=== PATIENT | female | born 1930 | race Caucasian/White ===

== ENCOUNTER 2019-07-24 11:14 | Inpatient (IN) | payer MEDICARE ==
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
[2019-07-24 12:27] LABS: Basophils % (A) 1 %; Eosinophils # (A) 0.1 k/uL (0-0.7); Eosinophils % (A) 1 %; HCT 36.3 % (34.0-46.0); HGB 11.4 gm/dL (11.4-16.0); Lymphocytes # (A) 0.9 k/uL (1.0-4.8); Lymphocytes % (A) 14 %; MCHC 31.3 g/dL (31.0-37.0); MCV 89.2 fL (80.0-100.0); Mean Platelet Volume 7.3; Monocytes # (A) 0.5 k/uL (0-1.0); Monocytes % (A) 8 %; Neutrophils # (A) 4.8 k/uL (1.3-7.7); Neutrophils % (A) 73 %; Platelet Count 370 k/uL (150-450); RBC 4.07 m/uL (3.80-5.40); RDW 13.3 % (11.5-15.5); WBC 6.6 k/uL (3.8-10.6)
[2019-07-24 12:38] LABS: Albumin 3.3 g/dL (3.5-5.0); Calcium 8.8 mg/dL (8.4-10.2); Potassium 3.9 mmol/L (3.5-5.1); Total Bilirubin 0.6 mg/dL (0.2-1.3); Total Protein 6.6 g/dL (6.3-8.2)
--- NOTE | 2019-07-24 12:40 | XR ---
EXAMINATION TYPE: XR chest 2V DATE OF EXAM: 07/24/2019 COMPARISON: None INDICATION: Difficulty breathing short of breath x3 days TECHNIQUE: Frontal and lateral views of the chest are obtained. FINDINGS: The heart size is normal. The pulmonary vasculature is normal. There is a small left pleural effusion. Minimal right pleural effusion may be present. Some platelike atelectasis is in the right lower lung field.. IMPRESSION: 1. Small bilateral pleural effusions. 2. Platelike atelectasis right lung base
--- NOTE | 2019-07-24 12:41 | XR ---
EXAMINATION TYPE: XR KUB DATE OF EXAM: 07/24/2019 COMPARISON: None HISTORY: Difficulty breathing upper abdominal pain TECHNIQUE: Abdomen is examined in the upright view FINDINGS: Small bilateral pleural effusions are evident. No free air is evident. No suspicious air-fl uid levels or differential air-fluid levels are present. Scoliosis within the lumbar spine. Psoas mar gins are normal. Post cholecystectomy clips are present. Surgical screws are within the sacral region IMPRESSION: 1. No acute abdomen abnormality. 2. Small bilateral pleural effusions
[2019-07-24 13:25] LABS: D-Dimer 6.98 mg/L FEU (<0.60); Partial Thromboplastin Time 21.6 sec (22.0-30.0)
[2019-07-24] MEDS ORDERED: FAMOTIDINE 20 MG/2 ML VIAL IV STA (13:52)
[2019-07-24] MEDS ORDERED: diphenhydrAMINE 50 MG/ML 1 ML VIAL IVP STA (13:52)
[2019-07-24] MEDS ORDERED: methylPREDNISolone SOD SUCCI 125 MG/2 ML VIAL IV STA (13:52)
--- NOTE | 2019-07-24 14:54 | CT ---
CT CHEST FOR PULMONARY EMBOLISM. EXAMINATION TYPE: CT chest angio for PE DATE OF EXAM: 07/24/2019 INDICATION: Shortness of breath. CT DLP: 408.4 mGycm, Automated exposure control for dose reduction was used. CONTRAST: Patient injected with 100 mL of Isovue 370. COMPARISON: None TECHNIQUE: CT of the chest is performed on a spiral scan at 2 mm thick sections. Study is performed with intravenous contrast timed for evaluation for pulmonary embolism. This will limit additional po rtions of the evaluation. 3-D MIP images reconstructed by the technologist are reviewed on the compu ter in the coronal and sagittal planes. FINDINGS: No persistent filling defects are evident to suggest an acute pulmonary embolism. No mediastinal or hilar adenopathy enlarged by CT criteria is evident. The ascending aorta diameter at the level of the main pulmonary artery is 3.5 cm. The main pulmonary artery diameter at the bifur cation is 3.2 cm. Small to moderate bilateral pleural effusions are present. Some compressive atelectasis within the de pendent portions of the lungs bilaterally. Limited CT section through the upper abdomen. Ascites is present. IMPRESSIONS: 1. No acute pulmonary embolism. 2. Small to moderate bilateral pleural effusions. 3. Ascites.
[2019-07-24] MEDS: MELATONIN 5 MG TABLET PO SCH (22:15)
[2019-07-24] MEDS: FUROSEMIDE 10 MG/ML 2 ML VIAL IV SCH (22:15)
[2019-07-25] MEDS: LEVOTHYROXINE 50 MCG TAB PO SCH (05:40)
[2019-07-25] MEDS: PANTOPRAZOLE 40 MG TABLET PO SCH (08:39)
[2019-07-25] MEDS: ASPIRIN 81 MG PO SCH (08:39)
[2019-07-25] MEDS: ATORVASTATIN 40 MG TAB PO SCH (08:39)
[2019-07-25] MEDS: OXYBUTYNIN XL 5 MG TAB.ER.24 PO SCH (08:39)
[2019-07-25] MEDS: MECLIZINE 25 MG TAB PO SCH (08:39)
[2019-07-25] MEDS: FUROSEMIDE 10 MG/ML 2 ML VIAL IV SCH ×2 (08:39→20:49)
[2019-07-25] MEDS ORDERED: FUROSEMIDE 20 MG TAB PO SCH (09:00)
[2019-07-25 10:02] LABS: Basophils % (A) 0 %; Eosinophils % (A) 0 %; HCT 36.2 % (34.0-46.0); HGB 11.2 gm/dL (11.4-16.0); Hypochromasia Slight; Lymphocytes # (A) 1.2 k/uL (1.0-4.8); Lymphocytes % (A) 15 %; MCH 28.3 pg (25.0-35.0); MCV 91.3 fL (80.0-100.0); Mean Platelet Volume 7.9; Monocytes # (A) 0.5 k/uL (0-1.0); Monocytes % (A) 6 %; Neutrophils # (A) 6.2 k/uL (1.3-7.7); Neutrophils % (A) 76 %; Platelet Count 383 k/uL (150-450); RBC 3.96 m/uL (3.80-5.40); RDW 13.4 % (11.5-15.5); WBC 8.1 k/uL (3.8-10.6)
[2019-07-25 10:14] LABS: Calcium 9.1 mg/dL (8.4-10.2); Potassium 3.8 mmol/L (3.5-5.1)
[2019-07-25] MEDS ORDERED: IOPAMIDOL CONTRAST (ORAL USE) VIAL PO PRN (10:54)
--- NOTE | 2019-07-25 11:00 | ECHOF ---
Referral Reason:Pleural effusions MEASUREMENTS -------- HEIGHT: 162.6 cm WEIGHT: 90.7 kg BP: 160/74 RVIDd: 3.8 cm (< 3.3) IVSd: 1.6 cm (0.6 - 1.1) LVIDd: 4.0 cm (3.9 - 5.3) LVPWd: 1.5 cm (0.6 - 1.1) IVSs: 2.2 cm LVIDs: 2.7 cm LVPWs: 1.6 cm LAESV Index (A-L): 38.74 ml/m Ao Diam: 3.1 cm (2.0 - 3.7) AV Cusp: 2.4 cm (1.5 - 2.6) MV EXCURSION: 16.659 mm (> 18.000) MV EF SLOPE: 67 mm/s (70 - 150) EPSS: 0.5 cm MV E Blaine: 0.53 m/s MV DecT: 156 ms MV A Blaine: 0.74 m/s MV E/A Ratio: 0.72 RAP: 5.00 mmHg RVSP: 51.95 mmHg FINDINGS -------- Sinus rhythm. This was a technically good study. The left ventricular size is normal. There is moderate concentric left ventricular hypertrophy. O verall left ventricular systolic function is normal with, an EF between 55 - 60 %. Increased Lap Gr kevin II Diastolic Dysfunction. The right ventricle is mild to moderately enlarged. LA is moderately dilated 34-39 ml/m2 The right atrium is moderately enlarged. Mobile interatrial septum. There is mild aortic valve sclerosis. There is no evidence of aortic regurgitation. There is no e vidence of aortic stenosis. [id number]-acximnqe mitral regurgitation is present. Moderate tricuspid regurgitation present. There is moderate pulmonary hypertension. The right ruchi tricular systolic pressure, as measured by Doppler, is 51.95mmHg. There is no pulmonic regurgitation present. The aortic root size is normal. IVC Not well visulized. There is no pericardial effusion. CONCLUSIONS -------- 1. Sinus rhythm. 2. This was a technically good study. 3. The left ventricular size is normal. 4. There is moderate concentric left ventricular hypertrophy. 5. Overall left ventricular systolic function is normal with, an EF between 55 - 60 %. 6. Increased Lap Grade II Diastolic Dysfunction. 7. The right ventricle is mild to moderately enlarged. 8. LA is moderately dilated 34-39 ml/m2 9. The right atrium is moderately enlarged. 10. Mobile interatrial septum. 11. There is mild aortic valve sclerosis. 12. There is no evidence of aortic regurgitation. 13. There is no evidence of aortic stenosis. 14. [id number]-[id number] mitral regurgitation is present. 15. Moderate tricuspid regurgitation present. 16. There is moderate pulmonary hypertension. 17. The right ventricular systolic pressure, as measured by Doppler, is 51.95mmHg. 18. There is no pulmonic regurgitation present. 19. The aortic root size is normal. 20. IVC Not well visulized. 21. There is no pericardial effusion. ELECTRICAL ENGINEERING TECHNOLOGIST: Rachna Schultz RDCS
--- NOTE | 2019-07-25 11:59 | US ---
EXAMINATION TYPE: US venous doppler duplex LE LT DATE OF EXAM: 07/25/2019 11:38 AM COMPARISON: NONE CLINICAL HISTORY: 88-year-old female with swelling, Rule out DVT. SIDE PERFORMED: Left TECHNIQUE: The lower extremity deep venous system is examined utilizing real time linear array sonog wilfrido with graded compression, doppler sonography and color-flow sonography. FINDINGS: VESSELS IMAGED: External Iliac Vein (EIV) Common Femoral Vein Deep Femoral Vein Greater Saphenous Vein * Femoral Vein Popliteal Vein Small Saphenous Vein * Proximal Calf Veins (* superficial vessels) Left Leg: Negative for DVT IMPRESSION: No evidence for DVT within the left lower extremity imaged from the groin to the upper calf.
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
[2019-07-25 12:18] LABS: Appearance,Urine Clear (Clear); Bacteria,Urine Occasional /hpf; Bilirubin,Urine Negative (Negative); Blood,Urine Negative (Negative); Color,Urine Yellow; Glucose,Urine (UA) Negative (Negative); Hyaline Casts,Urine 17 /lpf (0-2); Ketones,Urine Negative (Negative); Leukocyte Esterase,Urine Moderate (Negative); Mucus,Urine Rare /hpf; Nitrite,Urine Negative (Negative); PH, Urine 5.5 (5.0-8.0); Protein,Urine Negative (Negative); RBC,Urine <1 /hpf (0-5); Specific Gravity,Urine 1.016 (1.001-1.035); Squamous Epithelial Cell,Urine <1 /hpf (0-4); Urobilinogen,Urine <2.0 mg/dL (<2.0); WBC,Urine 7 /hpf (0-5)
[2019-07-25] MEDS: BARIUM SULFATE 450 ML ORAL.SUSP BOTTLE PO PRN ×2 (12:32→15:19)
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
--- NOTE | 2019-07-25 17:05 | CT ---
EXAMINATION TYPE: CT abdomen pelvis wo con DATE OF EXAM: 07/25/2019 COMPARISON: None HISTORY: 88-year-old female Abdominal pain CT DLP: 883.8 mGycm. Automated exposure control for dose reduction was used. TECHNIQUE: Contiguous axial scanning of the abdomen and pelvis without IV contrast. Coronal and sagit jessie reconstructions performed. FINDINGS: Heart borderline to mildly enlarged without pericardial effusion. Extensive coronary artery calcifica tions are present. Moderate left and fxlkf-[id number] right pleural effusions with adjacent opacities. Small hiatal hernia. Subtle contour nodularity of the liver. Lack of IV contrast limits assessment for any focal lesions. Cholecystectomy clips. Suspect a 2.6 cm posterior splenule. Noncontrast appearance of the pancreas and adrenal glands show n o gross abnormality. There is trace contrast being excreted in from the renal collecting systems. No hydronephrosis. Moderate atherosclerotic calcifications, aorta and iliac arteries. Moderate ascites. There is mild omental caking and mesenteric lymph nodes measuring up to 9 mm in aortocaval retroperit morley lymph node mildly enlarged at 1.1 cm. IV contrast has collected within the nondistended bladder. There is moderate pelvic ascites. Nonspeci fic calcifications right lower quadrant. Oral contrast has progressed faintly into the sigmoid colon. Uterus is not visualized. Neither ovary is clearly seen. Bones: Some degenerative changes of the hips. Postsurgical changes lumbosacral junction. Severe degen erative disc disease throughout the lumbar spine. One anterolisthesis at L2-L4. Suspect a chronic Marj morl's node of the superior L2 endplate. Osteopenia. IMPRESSION: 1. Correlate for fluid overload state given cardiomegaly, CAD, pleural effusions, and moderate abdom inopelvic ascites. Possible underlying cirrhosis as well. 2. Some irregular soft tissue density along the omentum may represent omental caking. Infectious and neoplastic etiologies are in the differential. Correlate with cytology after diagnostic paracentesis . 3. Moderate left and small to moderate right pleural effusions with prominent bibasilar areas of con solidation. Correlate for possible pneumonia.
[2019-07-25] MEDS: MELATONIN 5 MG TABLET PO SCH (20:49)
[2019-07-26] MEDS: LEVOTHYROXINE 50 MCG TAB PO SCH (06:35)
[2019-07-26 06:54] LABS: Basophils # (A) 0.1 k/uL (0-0.2); Basophils % (A) 1 %; Eosinophils # (A) 0.2 k/uL (0-0.7); Eosinophils % (A) 3 %; HCT 34.3 % (34.0-46.0); HGB 11.3 gm/dL (11.4-16.0); Hypochromasia Slight; Lymphocytes # (A) 1.4 k/uL (1.0-4.8); Lymphocytes % (A) 21 %; MCH 29.6 pg (25.0-35.0); MCV 89.8 fL (80.0-100.0); Mean Platelet Volume 7.3; Monocytes # (A) 0.5 k/uL (0-1.0); Monocytes % (A) 8 %; Neutrophils # (A) 4.4 k/uL (1.3-7.7); Neutrophils % (A) 65 %; Platelet Count 366 k/uL (150-450); RBC 3.82 m/uL (3.80-5.40); RDW 13.6 % (11.5-15.5); WBC 6.7 k/uL (3.8-10.6)
[2019-07-26 07:05] LABS: Calcium 8.7 mg/dL (8.4-10.2); Potassium 3.6 mmol/L (3.5-5.1)
[2019-07-26] MEDS: PANTOPRAZOLE 40 MG TABLET PO SCH (09:15)
[2019-07-26] MEDS: ASPIRIN 81 MG PO SCH (09:15)
[2019-07-26] MEDS: ATORVASTATIN 40 MG TAB PO SCH (09:15)
[2019-07-26] MEDS: FUROSEMIDE 10 MG/ML 2 ML VIAL IV SCH ×2 (09:15→20:21)
[2019-07-26] MEDS: OXYBUTYNIN XL 5 MG TAB.ER.24 PO SCH (09:15)
[2019-07-26] MEDS: MECLIZINE 25 MG TAB PO SCH (09:15)
--- NOTE | 2019-07-26 11:05 | XR ---
EXAMINATION TYPE: XR chest 1V DATE OF EXAM: 07/26/2019 COMPARISON: 07/24/2019 HISTORY: Status post left-sided thoracentesis TECHNIQUE: Single frontal view of the chest is obtained. FINDINGS: There is an increasing rvaoq-fo-paqylpjx right and persistent small left pleural effusion with bibasilar airspace disease. No postprocedural pneumothorax seen. Cardiomediastinal silhouette is partially obscured but appears stable. Postsurgical, arthropathic or posttraumatic changes of the di stal clavicle is noted. Cholecystectomy clips are seen. IMPRESSION: Increasing iiedy-ku-ykkxqaps right pleural effusion and small left pleural effusion with bibasilar airspace disease, likely atelectasis. No postprocedural pneumothorax.
--- NOTE | 2019-07-26 11:12 | P.PN ---
Subjective Progress Note Date: 07/26/19 Principal diagnosis: Subacute shortness of breath, small to moderate-sized pleural effusion, ascites, and possibility of intra-abdominal malignancy This is a pleasant 88-year-old female patient who presented yesterday to the emergency department because of worsening shortness of breath and abdominal distention. On chest exit the patient was noted to have bilateral pleural eff usions. She was also noted to have some abdominal distention and lower extremity edema. She was having orthopnea. She was having some new onset constipation. No melanotic stool. No active cardiac disease. No history of congestion heart failure. No angina. No palpitation. No fever chills or night sweats. No other complaints otherwise. A CT angiogram of the chest was done in the emergency department and it showed no this of any pulmonary embolism. There was small to moderate-sized pleural effusion. There was also ascites. The white cell count is not elevated at 8.1. D-dimer was at 6.9 without evidence of any pulmonary embolism. Electrodes are all within normal limits. Otherwise, the review of system essentially negative. She claims that she has lost around 20 pounds but she has a good appetite. Albumin level is at 3.3. ProBNP level was was 1650 and LFTs are within normal limits. Lactic acid level was nonelevated. On 07/26/2019 patient seen in follow-up on selective care unit, she is awake and alert, in no acute distress, she had her CT of the abdomen and pelvis yesterday which showed moderate left and small to moderate right pleural effusions with adjacent opacities, small hiatal hernia, subtle nodularity of the liver, mild omental caking with and mesenteric lymph nodes measuring up to 9 mm in the aortocaval retroperitoneal lymph node mildly enlarged at 1.1 cm. There was moderate pelvic ascites. Patient is on 2 L of oxygen and her pulse ox is 92%, hemodynamically she stable, afebrile, there is a possibility of paracentesis being scheduled for later today, we'll proceed with left-sided thoracentesis today, we spoke about with the patient, and she is agreeable to proceed. He remains on IV Lasix, at 20 mg every 12 hours, she is in negative fluid balance of 925 ML. His labs have an reviewed, showing white blood cell, 6.7, hemoglobin of 11.3, sodium is 140, potassium is 3.6, chloride is 102, CO2 31, B1 is 20 creatinine 0.93 Objective - Vital Signs Vital signs: Vital Signs Temp 96.2 F L 07/26/19 04:00 Pulse 76 07/26/19 04:00 Resp 18 07/26/19 04:00 BP 140/69 07/26/19 04:00 Pulse Ox 92 L 07/26/19 04:00 Intake & Output 07/25/19 07/26/19 07/26/19 18:59 06:59 18:59 Intake Total 250 118 Output Total 600 575 Balance -350 -575 118 Weight 86.9 kg Intake: Oral 250 118 Output: Urine 600 575 Other: Voiding Method Toilet # Voids 1 1 - Exam GENERAL EXAM: Alert, very pleasant, 88-year-old white female on 2 L of oxygen the pulse ox of 92% comfortable in no apparent distress. HEAD: Normocephalic/atraumatic. EYES: Normal reaction of pupils, equal size. Conjunctiva pink, sclera white. NOSE: Clear with pink turbinates. THROAT: No erythema or exudates. NECK: No masses, no JVD, no thyroid enlargement, no adenopathy. CHEST: No chest wall deformity. Symmetrical expansion. LUNGS: Equal air entry with no crackles, wheeze, rhonchi or dullness. CVS: Regular rate and rhythm, normal S1 and S2, no gallops, no murmurs, no rubs ABDOMEN: Soft, nontender. No hepatosplenomegaly, normal bowel sounds, no guarding or rigidity. EXTREMITIES: No clubbing, no edema, no cyanosis, 2+ pulses and upper and lower extremities. MUSCULOSKELETAL: Muscle strength and tone normal. SPINE: No scoliosis or deformity SKIN: No rashes CENTRAL NERVOUS SYSTEM: Alert and oriented -3. No focal deficits, tone is normal in all 4 extremities. PSYCHIATRIC: Alert and oriented -3. Appropriate affect. Intact judgment and insight. - Labs CBC & Chem 7: 07/26/19 06:32 07/26/19 06:32 Labs: Abnormal Lab Results - Last 24 Hours (Table) 07/25/19 07/26/19 07/26/19 Range/Units 11:50 06:32 06:32 Hgb 11.3 L (11.4-16.0) gm/dL Carbon Dioxide 31 H (22-30) mmol/L BUN 20 H (7-17) mg/dL Glucose 105 H (74-99) mg/dL Ur Leukocyte Esterase Moderate H (Negative) Urine WBC 7 H (0-5) /hpf Urine Bacteria Occasional H (None) /hpf Hyaline Casts 17 H (0-2) /lpf Urine Mucus Rare H (None) /hpf Assessment and Plan Plan: Assessment: 1 subacute shortness of breath with development of small to moderate-sized pleural effusion, currently under investigation. Noted the patient has also developed some ascites and lower extremity edema. Consider congestion heart failure. Consider intra-abdominal malignancy resulting into ascites and bilateral pleural effusion. The patient is hypothyroid and the TSH needs to be rechecked to rule out any significant hypothyroidism. Consider underlying chronic liver disease. Consider underlying nephrosis. Status post left-sided thoracentesis would removal of 800 mL of pleural fluid which was sent for analysis, this was done today on 07/26/2019 2 irregular soft tissue density along the omentum that may represent omental caking, infectious and neoplastic etiologies are in the differential 2 lower extremity edema 3 ascites 4 hypertension 5 hypothyroidism 6 hyperlipidemia Plan: Patient had a left-sided thoracentesis today at the bedside by Dr. Gonsalves, 800 mL of pleural fluid was removed, and he was sent for analysis and cytology. Patient will possibly need paracentesis today. Repeat chest x-ray, patient tolerated the procedure well, continue with current medical treatment, will send a CEA and CA 199 levels. We'll continue to follow I performed a history & physical examination of the patient and discussed their management with my nurse practitioner, Melissa Shook. I reviewed the nurse practitioner's note and agree with the documented findings and plan of care. Lung sounds are positive for clear breath sounds. The findings and the impression was discussed with the patient. I attest to the documentation by the nurse practitioner. Time with Patient: Less than 30
--- NOTE | 2019-07-26 12:22 | PCN ---
PROCEDURE NOTE THORACENTESIS NOTE: PREOPERATIVE DIAGNOSIS: Bilateral pleural effusion. POSTOPERATIVE DIAGNOSIS: Bilateral pleural effusion. A time-out was completed verifying correct patient, procedure, site, positioning , and implant (s) or special equipment if applicable. Ultrasound guidance was not used and appropriate fluid pocket was identified and marked. Patient was positioned, prepped and draped in usual sterile fashion. Lidocaine was used to anesthetize the area. A Thoracentesis catheter was introduced into the pleural space and fluid was removed. Blood loss was none. A chest x-ray following thoracentesis shows no evidence of any postprocedural pneumothorax. Total Fluid Removed: 800 mL Color of Fluid: Turbid, dark yellowish pleural effusion. Patient tolerated the procedure without any major difficulties and there were no complications. MMODL / IJN: [id number] /
--- NOTE | 2019-07-26 14:52 | P.PN ---
Subjective Progress Note Date: 07/26/19 This is a pleasant 88-year-old female with history of gastroesophageal reflux disease, hyperlipidemia, hypothyroidism and multiple other medical issues, presented to the ER with increased shortness of breath, abdominal pain. Reports constipation but states last bowel movement was yesterday, nonbloody. Patient reported she has been having high fevers, dizziness, no cough, no congestion, positive orthopnea. Reports mild edema bilateral lower legs with left leg greater than right. Doppler of left leg reported negative. Apparently patient followed-up with PCP last week regarding dizziness, abdominal bloating and placed on Antivert and Lasix. Currently abdomen soft but significantly distended with bilateral lower quadrants more firmer and reports diffuse tenderness.Chest x-ray reported small bilateral pleural effusions. KUB reported no acute abdomen. Elevated d-dimer. Chest CTA reported no acute pulmonary embolism, spinal moderate bilateral pleural effusions, ascites. Denies chest pain, palpitations. EKG reported sinus rhythm first degree AV block with occasional PVCs, troponin negative 1. Hematology unremarkable. Chemistry unremarkable with BUN 19, creatinine 0.85. Glucose 131, albumin 3.3. UA reporting moderate leukocytes, negative nitrates elevated urine WBCs of 7, occasional bacteria, hyaline casts. Afebrile, lactic acid within normal limits, normal WBC. Short of breath, requiring 3 L nasal cannula to maintain O2 sats in the 90s, and a patient who does not wear oxygen at home. Mildly hypertensive.Echo pending. 07/25/2014 Abdomen,pelvis CT with contrast completed yesterday reporting suspected fluid overload ,moderate left and small moderate right pleural effusi on, prominent bibasilar consolidation, small hiatal hernia ,Contour nodularity of the liver, moderate abdominopelvic ascites, mild omental caking and mesenteric lymph nodes measuring up to 9 mm in aortocaval retroperitoneal lymph node mildly enlarged at 1.1 cm, nonspecific calcifications right lower quadrant, possible underlying cirrhosis. Vital signs stable, maintaining O2 sats in the 90s and 2 L nasal cannula. Afebrile, normal WBC. Echo reported normal LV function, EF 55-60%, [id number] mitral regurgitation, moderate tricuspid regurgitation, moderate pulmonary hypertension. Objective - Vital Signs Vital signs: Vital Signs Temp 96.2 F L 07/26/19 04:00 Pulse 76 07/26/19 04:00 Resp 18 07/26/19 04:00 BP 140/69 07/26/19 04:00 Pulse Ox 92 L 07/26/19 04:00 Intake & Output 07/25/19 07/26/19 07/26/19 18:59 06:59 18:59 Intake Total 250 118 Output Total 600 575 Balance -350 -575 118 Weight 86.9 kg Intake: Oral 250 118 Output: Urine 600 575 Other: Voiding Method Toilet # Voids 1 1 - Exam VITAL SIGNS: As above GENERAL: Sitting up in chair, no acute distress, mild shortness of breath. HEENT: Conjunctivae normal. eyes normal. NECK: No JVD. No thyroid enlargement. No LNs CARDIOVASCULAR: S1, S2 regular.No murmur RESPIRATION: Breath sounds diminished in the bases. No rhonchi or crackles. No wheezing ABDOMEN: Soft, distended, diffuse tenderness, positive ascites . No guarding. no masses palpable.Bowel sounds heard. LEGS: Mild edema PSYCHIATRY: Alert and oriented X3, mood and affect normal. NERVOUS SYSTEM: Cranial N 2-12 grossly normal. Moves all 4 limbs. Diffuse weakness No focal deficits. Strength and sensation grossly intact. Skin: no rash Lymphatic system. No LN neck axilla - Labs CBC & Chem 7: 07/26/19 06:32 07/26/19 06:32 Labs: Abnormal Lab Results - Last 24 Hours (Table) 07/26/19 07/26/19 Range/Units 06:32 06:32 Hgb 11.3 L (11.4-16.0) gm/dL Carbon Dioxide 31 H (22-30) mmol/L BUN 20 H (7-17) mg/dL Glucose 105 H (74-99) mg/dL Assessment and Plan Assessment: -Acute hypoxic respiratory failure secondary to bilateral pleural effusions, accompanied by ascites, bilateral lower extremity edema, etiology unclear. Possible CHF. -New abdominal ascites, accompanied by lower extremity edema, etiology unclear, Workup in progress ,possible malignancy with compressive abdominal mass involving lungs and lower extremities? -Inguinal hernia -Hypertension -Hyperlipidemia -Gastroesophageal reflux disease -Hypothyroidism -[id number]-qn-fetzdptv mitral regurgitation -Moderate tricuspid regurgitation -Moderate pulmonary hypertension -Irregular density along the omentum with omental caking, infectious, neoplastic etiologies in the differential -Possible chronic liver disease Plan: Continue on current medication regime ,monitoring and symptomatic treatment. GI consulted for further workup, possible diagnostic paracentesis. Possible left-sided thoracentesis as per pulmonary. Prognosis guarded given multiple complex medical issues. The impression and plan of care has been dictated as directed. : I performed a history and examination of this patient, discussed the same with the dictator. I agree with the dictator's note ,documented as a scribe. Any additional findings or plans will be noted.
[2019-07-26 17:01] LABS: Appearance,BF Hazy; Color,BF Yellow; Nucleated Cells, Body Fluid 645 /uL; RBC, Body Fluid 675 /uL
[2019-07-26 17:45] LABS: Mononuclear WBC,Body Fluid 97 %; Polynuclear WBC,Body Fluid 2 %; Total Cells Counted,Body Fluid 100
[2019-07-26 18:09] LABS: Carcinoembryonic Antigen 1.2 ng/mL (0.0-4.9)
[2019-07-26 18:38] LABS: Cancer Antigen 19-9 7.4 U/mL (0.0-34.9)
[2019-07-26] MEDS: MELATONIN 5 MG TABLET PO SCH (20:21)
[2019-07-26 23:52] LABS: Total Protein, Body Fluid 4130 mg/dL
[2019-07-27 00:11] LABS: Glucose, BF Source Pleural Fluid; Glucose, Body Fluid 88 mg/dL; LDH, Body Fluid Source Pleural Fluid
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
[2019-07-27] MEDS: LEVOTHYROXINE 50 MCG TAB PO SCH (06:58)
[2019-07-27 07:17] LABS: Albumin 2.8 g/dL (3.5-5.0); Calcium 8.5 mg/dL (8.4-10.2); Potassium 3.7 mmol/L (3.5-5.1); Total Bilirubin 0.4 mg/dL (0.2-1.3); Total Protein 5.8 g/dL (6.3-8.2)
[2019-07-27] MEDS: ASPIRIN 81 MG PO SCH (08:37)
[2019-07-27] MEDS: OXYBUTYNIN XL 5 MG TAB.ER.24 PO SCH (08:37)
[2019-07-27] MEDS: FUROSEMIDE 10 MG/ML 2 ML VIAL IV SCH ×2 (08:37→21:23)
[2019-07-27] MEDS: ATORVASTATIN 40 MG TAB PO SCH (08:38)
[2019-07-27] MEDS: MECLIZINE 25 MG TAB PO SCH (08:38)
[2019-07-27] MEDS: PANTOPRAZOLE 40 MG TABLET PO SCH (08:38)
--- NOTE | 2019-07-27 10:48 | P.PN ---
Subjective Progress Note Date: 07/27/19 Principal diagnosis: Subacute shortness of breath, small to moderate-sized pleural effusion, ascites, and possibility of intra-abdominal malignancy This is a pleasant 88-year-old female patient who presented yesterday to the emergency department because of worsening shortness of breath and abdominal distention. On chest exit the patient was noted to have bilateral pleural eff usions. She was also noted to have some abdominal distention and lower extremity edema. She was having orthopnea. She was having some new onset constipation. No melanotic stool. No active cardiac disease. No history of congestion heart failure. No angina. No palpitation. No fever chills or night sweats. No other complaints otherwise. A CT angiogram of the chest was done in the emergency department and it showed no this of any pulmonary embolism. There was small to moderate-sized pleural effusion. There was also ascites. The white cell count is not elevated at 8.1. D-dimer was at 6.9 without evidence of any pulmonary embolism. Electrodes are all within normal limits. Otherwise, the review of system essentially negative. She claims that she has lost around 20 pounds but she has a good appetite. Albumin level is at 3.3. ProBNP level was was 1650 and LFTs are within normal limits. Lactic acid level was nonelevated. On 07/26/2019 patient seen in follow-up on selective care unit, she is awake and alert, in no acute distress, she had her CT of the abdomen and pelvis yesterday which showed moderate left and small to moderate right pleural effusions with adjacent opacities, small hiatal hernia, subtle nodularity of the liver, mild omental caking with and mesenteric lymph nodes measuring up to 9 mm in the aortocaval retroperitoneal lymph node mildly enlarged at 1.1 cm. There was moderate pelvic ascites. Patient is on 2 L of oxygen and her pulse ox is 92%, hemodynamically she stable, afebrile, there is a possibility of paracentesis being scheduled for later today, we'll proceed with left-sided thoracentesis today, we spoke about with the patient, and she is agreeable to proceed. He remains on IV Lasix, at 20 mg every 12 hours, she is in negative fluid balance of 925 ML. His labs have an reviewed, showing white blood cell, 6.7, hemoglobin of 11.3, sodium is 140, potassium is 3.6, chloride is 102, CO2 31, B1 is 20 creatinine 0.93 On 07/27/2019 patient seen in follow-up on selective care unit, she is awake and alert, in no acute distress, patient is status post right-sided thoracentesis yesterday, pleural fluid cytology has been sent and pending at this time, pleural fluid analysis revealed exudative fluid based on fluid protein content of 4.13 g. No complaints of worsening difficulty breathing, she remains on IV diuretics, 20 mg every 12 hours. Breathing seems to be pretty comfortable, she is on 3 L of oxygen pulse ox of 95%, hemodynamically she is stable, no fever or chills. Tumor markers have been ordered, CEA and CA 199, and are within normal limits, paracentesis with fluid studies is being considered, GI consultation note has been noted. Awaiting results of the thoracentesis pathology. Objective - Vital Signs Vital signs: Vital Signs Temp 97.4 F L 07/27/19 04:00 Pulse 69 07/27/19 08:00 Resp 16 07/27/19 08:00 BP 121/57 07/27/19 08:00 Pulse Ox 95 07/27/19 08:00 Intake & Output 07/26/19 07/27/19 07/27/19 18:59 06:59 18:59 Intake Total 476 200 100 Output Total 1200 600 25 Balance -724 -400 75 Weight 85.3 kg Intake: Oral 476 200 100 Output: Urine 400 600 25 Other 800 Other: Voiding Method Toilet Toilet # Voids 1 # Bowel Movements 1 - Exam GENERAL EXAM: Alert, very pleasant, 88-year-old white female on 2 L of oxygen the pulse ox of 92% comfortable in no apparent distress. HEAD: Normocephalic/atraumatic. EYES: Normal reaction of pupils, equal size. Conjunctiva pink, sclera white. NOSE: Clear with pink turbinates. THROAT: No erythema or exudates. NECK: No masses, no JVD, no thyroid enlargement, no adenopathy. CHEST: No chest wall deformity. Symmetrical expansion. LUNGS: Equal air entry with no crackles, wheeze, rhonchi or dullness. CVS: Regular rate and rhythm, normal S1 and S2, no gallops, no murmurs, no rubs ABDOMEN: Soft, nontender. No hepatosplenomegaly, normal bowel sounds, no guarding or rigidity. EXTREMITIES: No clubbing, no edema, no cyanosis, 2+ pulses and upper and lower extremities. MUSCULOSKELETAL: Muscle strength and tone normal. SPINE: No scoliosis or deformity SKIN: No rashes CENTRAL NERVOUS SYSTEM: Alert and oriented -3. No focal deficits, tone is normal in all 4 extremities. PSYCHIATRIC: Alert and oriented -3. Appropriate affect. Intact judgment and insight. - Labs CBC & Chem 7: 07/26/19 06:32 07/27/19 05:52 Labs: Abnormal Lab Results - Last 24 Hours (Table) 07/27/19 Range/Units 05:52 Carbon Dioxide 33 H (22-30) mmol/L BUN 18 H (7-17) mg/dL Glucose 105 H (74-99) mg/dL Total Protein 5.8 L (6.3-8.2) g/dL Albumin 2.8 L (3.5-5.0) g/dL Assessment and Plan Plan: Assessment: 1 subacute shortness of breath with development of small to moderate-sized pleural effusion, currently under investigation. Noted the patient has also developed some ascites and lower extremity edema. Consider congestion heart failure. Consider intra-abdominal malignancy resulting into ascites and bilateral pleural effusion. The patient is hypothyroid and the TSH needs to be rechecked to rule out any significant hypothyroidism. Consider underlying chronic liver disease. Consider underlying nephrosis. Status post left-sided thoracentesis would removal of 800 mL of pleural fluid which was sent for analysis, this was done today on 07/26/2019, pleural fluid analysis revealed exudative fluid with protein content of 4.13 g, cytology is pending 2 irregular soft tissue density along the omentum that may represent omental caking, infectious and neoplastic etiologies are in the differential 2 lower extremity edema 3 ascites 4 hypertension 5 hypothyroidism 6 hyperlipidemia Plan: Awaiting results of the pleural fluid cytology, pleural fluid analysis revealed exudative fluid, tumor markers have been noted and are negative. We'll continue with IV diuretics, GI service is following, their consultation note has been noted. We'll continue to follow I performed a history & physical examination of the patient and discussed their management with my nurse practitioner, Melissa Shook. I reviewed the nurse practitioner's note and agree with the documented findings and plan of care. Lung sounds are positive for clear breath sounds. The findings and the impression was discussed with the patient. I attest to the documentation by the nurse practitioner. Time with Patient: Less than 30
--- NOTE | 2019-07-27 12:04 | P.PN ---
Subjective Progress Note Date: 07/27/19 This is a pleasant 88-year-old female with history of gastroesophageal reflux disease, hyperlipidemia, hypothyroidism and multiple other medical issues, presented to the ER with increased shortness of breath, abdominal pain. Reports constipation but states last bowel movement was yesterday, nonbloody. Patient reported she has been having high fevers, dizziness, no cough, no congestion, positive orthopnea. Reports mild edema bilateral lower legs with left leg greater than right. Doppler of left leg reported negative. Apparently patient followed-up with PCP last week regarding dizziness, abdominal bloating and placed on Antivert and Lasix. Currently abdomen soft but significantly distended with bilateral lower quadrants more firmer and reports diffuse tenderness.Chest x-ray reported small bilateral pleural effusions. KUB reported no acute abdomen. Elevated d-dimer. Chest CTA reported no acute pulmonary embolism, spinal moderate bilateral pleural effusions, ascites. Denies chest pain, palpitations. EKG reported sinus rhythm first degree AV block with occasional PVCs, troponin negative 1. Hematology unremarkable. Chemistry unremarkable with BUN 19, creatinine 0.85. Glucose 131, albumin 3.3. UA reporting moderate leukocytes, negative nitrates elevated urine WBCs of 7, occasional bacteria, hyaline casts. Afebrile, lactic acid within normal limits, normal WBC. Short of breath, requiring 3 L nasal cannula to maintain O2 sats in the 90s, and a patient who does not wear oxygen at home. Mildly hypertensive.Echo pending. 07/26/2019 Abdomen,pelvis CT with contrast completed yesterday reporting suspected fluid overload ,moderate left and small moderate right pleural effusi on, prominent bibasilar consolidation, small hiatal hernia ,Contour nodularity of the liver, moderate abdominopelvic ascites, mild omental caking and mesenteric lymph nodes measuring up to 9 mm in aortocaval retroperitoneal lymph node mildly enlarged at 1.1 cm, nonspecific calcifications right lower quadrant, possible underlying cirrhosis. Vital signs stable, maintaining O2 sats in the 90s and 2 L nasal cannula. Afebrile, normal WBC. Echo reported normal LV function, EF 55-60%, [id number] mitral regurgitation, moderate tricuspid regurgitation, moderate pulmonary hypertension. 07/27/2019 Underwent left thoracentesis yesterday with 800 MLS turbid dark yellow pleural effusion drained, tolerated procedure well. Exudative with Cytology pending. CA 19-9,CEA WNL,Diuresing well on Lasix IV push with 24-hour I&O reflecting a negative fluid balance. Reports decreased shortness of breath .Maintaining O2 sats in the 90s on 3 L nasal cannula. Scheduled for paracentesis this afternoon. Objective - Vital Signs Vital signs: Vital Signs Temp 97.4 F L 07/27/19 04:00 Pulse 68 07/27/19 04:00 Resp 18 07/27/19 04:00 BP 119/53 07/27/19 04:00 Pulse Ox 92 L 07/27/19 04:00 Intake & Output 07/26/19 07/27/19 07/27/19 18:59 06:59 18:59 Intake Total 476 200 Output Total 1200 600 Balance -724 -400 Weight 85.3 kg Intake: Oral 476 200 Output: Urine 400 600 Other 800 Other: Voiding Method Toilet Toilet # Voids 1 - Exam VITAL SIGNS: As above GENERAL: Sitting up at side of bed, no acute distress HEENT: Conjunctivae normal. eyes normal. NECK: No JVD. No thyroid enlargement. No LNs CARDIOVASCULAR: S1, S2 regular.No murmur RESPIRATION: Breath sounds diminished in the bases. No rhonchi or crackles. No wheezing ABDOMEN: Soft, distended, diffuse tenderness, positive ascites . No guarding. no masses palpable.Bowel sounds heard. LEGS: Mild edema PSYCHIATRY: Alert and oriented X3, mood and affect normal. NERVOUS SYSTEM: Cranial N 2-12 grossly normal. Moves all 4 limbs. Diffuse weakness No focal deficits. Strength and sensation grossly intact. Skin: no rash Lymphatic system. No LN neck axilla - Labs CBC & Chem 7: 07/26/19 06:32 07/27/19 05:52 Labs: Abnormal Lab Results - Last 24 Hours (Table) 07/27/19 Range/Units 05:52 Carbon Dioxide 33 H (22-30) mmol/L BUN 18 H (7-17) mg/dL Glucose 105 H (74-99) mg/dL Total Protein 5.8 L (6.3-8.2) g/dL Albumin 2.8 L (3.5-5.0) g/dL Assessment and Plan Assessment: -Acute hypoxic respiratory failure secondary to bilateral pleural effusions, accompanied by ascites, bilateral lower extremity edema, etiology unclear. Possible CHF. Status post left thoracentesis, pleural cytology pending. -New abdominal ascites, accompanied by lower extremity edema, etiology unclear, Workup in progress ,possible malignancy with compressive abdominal mass involving lungs and lower extremities, workup in progress -Inguinal hernia -Hypertension -Hyperlipidemia -Gastroesophageal reflux disease -Hypothyroidism -[id number] mitral regurgitation -Moderate tricuspid regurgitation -Moderate pulmonary hypertension -Irregular density along the omentum with omental caking, infectious, neoplastic etiologies in the differential -Possible chronic liver disease Plan: Continue on current medication regime ,monitoring and symptomatic treatment. Paracentesis pending. Pleural cytology pending .Prognosis guarded given multiple complex medical issues. The impression and plan of care has been dictated as directed. : I performed a history and examination of this patient, discussed the same with the dictator. I agree with the dictator's note ,documented as a scribe. Any additional findings or plans will be noted.
[2019-07-27 12:06] LABS: Ceruloplasmin 27.7 mg/dL (20.0-60.0)
[2019-07-27 13:19] LABS: Protein, Total 5.5 g/dL (6.2-8.2)
[2019-07-27 13:22] LABS: % Iron Saturation 14.54 (12.00-45.00)
[2019-07-27 13:33] LABS: Ferritin 161.3 ng/mL (10.0-291.0)
[2019-07-27 14:00] LABS: Cancer Antigen 125 190.4 U/mL (0.0-30.1)
--- NOTE | 2019-07-27 14:05 | PN ---
PROGRESS NOTE DATE OF SERVICE: 07/27/2019 Patient is an 88-year-old pleasant white female admitted to hospital with abdominal pain, abdominal distention, shortness of breath, was diagnosed with pleural effusion and underwent thoracentesis yesterday and 800 mL of fluid was removed. She did have a CT of the abdomen and pelvis done that showed evidence of ascites and some nodular appearing liver, suspicious for liver cirrhosis. She is scheduled for large-volume paracentesis today. afternoon. In the meantime, she denies any symptoms other than abdominal distention. No abdominal pain. No nausea, vomiting. PHYSICAL EXAMINATION: Appears comfortable, in no apparent distress. Vital signs are stable, blood pressure 121/57, pulse rate 69, and temperature 97.4. HEENT: Examination unremarkable, conjunctivae are pink, sclerae nonicteric, oral cavity no lesions. NECK: No JVD or lymph node enlargement. CHEST: Clear to auscultation. HEART: Regular rate and rhythm. ABDOMEN: Soft, bowel sounds are positive. It was slightly distended. Free fluid noted. EXTREMITIES: Trace pedal edema. SKIN: No rashes. NEURO: She is alert and oriented x3. No focal deficits. LABS: WBC 6.7, hemoglobin 7.3, platelets normal. Basic metabolic panel showed a BUN of 18, creatinine 0.90. ALT, AST, T-bilirubin and alkaline phosphatase are normal. Hepatitis serologies are still pending. Workup for chronic liver disease so far revealed normal serum plasma, normal alpha 1 antitrypsin levels. Iron saturation and ferritin are all within normal limits. CA 99 is normal, CEA is normal. CA-125 is pending. IMPRESSION: 1. New onset ascites, scheduled for large-volume paracentesis for diagnostic and therapeutic purposes today. 2. Pleural effusion status post thoracentesis yesterday. Cytology is still pending. 3. Mild nodularity of the liver noted on recent imaging study. Possible underlying liver cirrhosis. 4. History of hypertension and hypercholesteremia. RECOMMENDATION: 1. Await ultrasound-guided paracentesis. 2. Continue with Lasix 20 mg q.12 hours. 3. Low-salt diet. 4. Will follow with you closely. Thank you for this consultation. MMODL / IJN: [id number] /
[2019-07-27 14:23] LABS: Alpha Fetoprotein, Tumor Mkr <2.5 ng/mL (0.0-7.9)
[2019-07-27 14:55] LABS: Hepatitis A Antibody IgM Non-Reactive (Non-Reactive); Hepatitis B Surface AB- Quant 3.5 mIU/mL; Hepatitis B Surface Antibody Non-Reactive (Non-Reactive); Hepatitis B Surface Antigen Non-Reactive (Non-Reactive); Hepatitis C IgG Antibody Non-Reactive (Non-Reactive)
--- NOTE | 2019-07-27 15:19 | US ---
Ultrasound-guided paracentesis. DATE OF EXAM: 07/27/2019 CLINICAL HISTORY: Ascites The procedure was discussed with the patient. The risks, complications, benefits, and alternatives we re discussed and any questions were answered. Informed consent was obtained. The patient was placed s upine on the ultrasound table and prepped and draped in the usual sterile fashion. All elements of maximal barrier technique were utilized. Under ultrasound guidance, access into the right lower quadrant was obtained, via the paracentesis catheter system and direct ultrasound guidanc e. Approximately 1.8 liters of straw-colored fluid was removed. The patient was stable throughout the pr ocedure and remained stable upon discharge from Department of Radiology. IMPRESSION: Successful paracentesis under ultrasound guidance.
[2019-07-27 15:55] LABS: Folate, Serum 12.3 ng/mL
[2019-07-27] MEDS ORDERED: MORPHINE SULFATE 2 MG/ML SYRINGE IVP PRN (21:18)
[2019-07-27 21:47] LABS: Appearance,BF Hazy; Color,BF Yellow; Nucleated Cells, Body Fluid 146 /uL; RBC, Body Fluid 103 /uL
[2019-07-27 21:48] LABS: Mononuclear WBC,Body Fluid 95 %; Polynuclear WBC,Body Fluid 5 %; Total Cells Counted,Body Fluid 100
[2019-07-27] MEDS ORDERED: ONDANSETRON 4 MG/2 ML VIAL IVP PRN (22:36)
[2019-07-27] MEDS: MELATONIN 5 MG TABLET PO SCH (23:09)
[2019-07-28 01:05] LABS: Albumin, Fluid Source Ascites
[2019-07-28] MEDS: LEVOTHYROXINE 50 MCG TAB PO SCH (06:22)
[2019-07-28] MEDS: OXYBUTYNIN XL 5 MG TAB.ER.24 PO SCH (09:04)
[2019-07-28] MEDS: FUROSEMIDE 10 MG/ML 2 ML VIAL IV SCH ×2 (09:04→20:04)
[2019-07-28] MEDS: PANTOPRAZOLE 40 MG TABLET PO SCH (09:04)
[2019-07-28] MEDS: ASPIRIN 81 MG PO SCH (09:05)
[2019-07-28] MEDS: ATORVASTATIN 40 MG TAB PO SCH (09:05)
[2019-07-28] MEDS: MECLIZINE 25 MG TAB PO SCH (09:05)
--- NOTE | 2019-07-28 12:34 | P.PN ---
Subjective Progress Note Date: 07/28/19 Principal diagnosis: Shortness of breath secondary to moderate-sized pleural effusion, ascites This is a pleasant 88-year-old female patient who presented yesterday to the emergency department because of worsening shortness of breath and abdominal distention. On chest exit the patient was noted to have bilateral pleural effusions. She was also noted to have some abdominal distention and lower extremity edema. She was having orthopnea. She was having some new onset constipation. No melanotic stool. No active cardiac disease. No history of congestion heart failure. No angina. No palpitation. No fever chills or night sweats. No other complaints otherwise. A CT angiogram of the chest was done in the emergency department and it showed no this of any pulmonary embolism. There was small to moderate-sized pleural effusion. There was also ascites. The white cell count is not elevated at 8.1. D-dimer was at 6.9 without evidence of any pulmonary embolism. Electrodes are all within normal limits. Otherwise, the review of system essentially negative. She claims that she has lost around 20 pounds but she has a good appetite. Albumin level is at 3.3. ProBNP level was was 1650 and LFTs are within normal limits. Lactic acid level was nonelevated. On 07/26/2019 patient seen in follow-up on selective care unit, she is awake and alert, in no acute distress, she had her CT of the abdomen and pelvis yesterday which showed moderate left and small to moderate right pleural effusions with adjacent opacities, small hiatal hernia, subtle nodularity of the liver, mild omental caking with and mesenteric lymph nodes measuring up to 9 mm in the aortocaval retroperitoneal lymph node mildly enlarged at 1.1 cm. There was moderate pelvic ascites. Patient is on 2 L of oxygen and her pulse ox is 92%, hemodynamically she stable, afebrile, there is a possibility of paracentesis being scheduled for later today, we'll proceed with left-sided thoracentesis today, we spoke about with the patient, and she is agreeable to proceed. He remains on IV Lasix, at 20 mg every 12 hours, she is in negative fluid balance of 925 ML. His labs have an reviewed, showing white blood cell, 6.7, hemoglobin of 11.3, sodium is 140, potassium is 3.6, chloride is 102, CO2 31, B1 is 20 creatinine 0.93 On 07/27/2019 patient seen in follow-up on selective care unit, she is awake and alert, in no acute distress, patient is status post right-sided thoracentesis yesterday, pleural fluid cytology has been sent and pending at this time, pleural fluid analysis revealed exudative fluid based on fluid protein content of 4.13 g. No complaints of worsening difficulty breathing, she remains on IV diuretics, 20 mg every 12 hours. Breathing seems to be pretty comfortable, she is on 3 L of oxygen pulse ox of 95%, hemodynamically she is stable, no fever or chills. Tumor markers have been ordered, CEA and CA 199, and are within normal limits, paracentesis with fluid studies is being considered, GI consultation note has been noted. Awaiting results of the thoracentesis pathology. The patient is seen today 07/28/2019 in follow-up on the selective care unit. She is currently sitting up in a chair at the bedside. Awake and alert in no acute distress. Breathing a bit easier today compared to yesterday. She did undergo paracentesis yesterday with 1.8 L of straw-colored fluid removed. The pleural fluid cytology from her thoracentesis on 07/26/2019 is still pending. C A 125 was found to be high at 190. The patient states she did have a hysterectomy with bilateral salpingo-oophorectomy many many years ago. Computed tomography scan of the abdomen and pelvis did reveal some irregular soft tissue density along the omentum may representing omental caking. Infectious and neoplastic etiologies are within the differential. Objective - Vital Signs Vital signs: Vital Signs Temp 97.9 F 07/28/19 08:00 Pulse 72 07/28/19 11:59 Resp 16 07/28/19 11:59 BP 106/58 07/28/19 11:40 Pulse Ox 91 L 07/28/19 11:40 Intake & Output 07/27/19 07/28/19 07/28/19 18:59 06:59 18:59 Intake Total 100 10 118 Output Total 725 1450 Balance -529 -0842 118 Weight 82.2 kg Intake: IV 10 .9 10 Oral 100 118 Output: Urine 725 1450 Other: Voiding Method Toilet Toilet Toilet # Voids 1 2 # Bowel Movements 1 - Exam GENERAL EXAM: Alert, very pleasant, 88-year-old female patient, on room air, comfortable in no apparent distress. HEAD: Normocephalic/atraumatic. EYES: Normal reaction of pupils, equal size. Conjunctiva pink, sclera white. NOSE: Clear with pink turbinates. THROAT: No erythema or exudates. NECK: No masses, no JVD, no thyroid enlargement, no adenopathy. CHEST: No chest wall deformity. Symmetrical expansion. LUNGS: Equal air entry with crackles in the bilateral posterior bases. CVS: Regular rate and rhythm, normal S1 and S2, no gallops, no murmurs, no rubs ABDOMEN: Soft, nontender. No hepatosplenomegaly, normal bowel sounds, no guarding or rigidity. EXTREMITIES: No clubbing, no edema, no cyanosis, 2+ pulses and upper and lower extremities. MUSCULOSKELETAL: Muscle strength and tone normal. SPINE: No scoliosis or deformity SKIN: No rashes CENTRAL NERVOUS SYSTEM: No focal deficits, tone is normal in all 4 extremities. PSYCHIATRIC: Alert and oriented -3. Appropriate affect. Intact judgment and insight. - Labs CBC & Chem 7: 07/26/19 06:32 07/27/19 05:52 Labs: Abnormal Lab Results - Last 24 Hours (Table) 07/27/19 07/27/19 Range/Units 05:52 05:52 Iron 33 L (50-170) ug/dL TIBC 227 L (228-460) ug/dL Total Protein (PEP) 5.5 L (6.2-8.2) g/dL CA 125 Antigen 190.4 H (0.0-30.1) U/mL CMV IgG Ab Reactive H (Non-Reactive) Microbiology - Last 24 Hours (Table) 07/27/19 14:05 Gram Stain - Preliminary Ascites Fluid Body Fluid Culture - Preliminary 07/27/19 14:05 Anaerobic Culture - Preliminary Ascites Fluid Assessment and Plan Assessment: 1 subacute shortness of breath with development of small to moderate-sized pleural effusion, status post thoracentesis on 07/26/2019, cytology pending. 2 irregular soft tissue density along the omentum that may represent omental caking, infectious and neoplastic etiologies are in the differential, CA125 elevated at 190 2 lower extremity edema 3 ascites, status post paracentesis with 1.8 L of straw-colored fluid removed on 07/27/2019 4 hypertension 5 hypothyroidism 6 hyperlipidemia Plan: The patient was seen and evaluated by Dr. Gonsalves Pleural fluid cytology is still pending CA125 190 Omentum soft tissue density with possible infectious versus neoplastic etiology Continue the current treatment plan We'll continue to follow I, the cosigning physician, performed a history & physical examination of the patient. Lungs sounds with crackles in the bilateral posterior bases. Maintaining good O2 saturations in the 90s on room air. I discussed the assessment and plan of care with my nurse practitioner, Hortensia Barragan. I attest to the above note as dictated by her.
--- NOTE | 2019-07-28 13:26 | PN ---
PROGRESS NOTE DATE OF SERVICE: 07/28/2019 Patient is an 88-year-old pleasant white female admitted to the hospital with new onset ascites and left-sided pleural effusion. She presents with shortness of breath and abdominal distention. She underwent thoracentesis 2 days ago and she underwent paracentesis yesterday. Approximately 1.8 L of fluid was removed without any difficulty. Following the procedure, patient complained of some abdominal pain and nausea, vomiting. This morning she is feeling much better. She denies any new symptoms. PHYSICAL EXAMINATION: Appears comfortable, no apparent distress. VITAL SIGNS: Stable. Blood pressure 106/58, pulse rate 72, temperature 98. HEENT examination unremarkable. Conjunctivae pink. Sclerae anicteric. Oral cavity no lesions. NECK: No JVD or lymph node enlargement. CHEST was clear to auscultation. HEART: Regular rate and rhythm. ABDOMEN is slightly distended. There is mild tenderness at the site of the paracentesis. Rest of the abdomen was soft. EXTREMITIES no pedal edema. SKIN no rashes. NEURO: She is alert and oriented x3. No focal deficits. LABS: No labs available from today. Yesterday, lab data revealed CA125 to be elevated at 190. The fluid analysis showed a total protein in the fluid to be 4.2 g, albumin was 2.8. Cytology is still pending. IMPRESSION: 1. New onset ascites status post large-volume paracentesis for diagnostic and therapeutic purposes. Cytology is pending fluid. Total protein in the fluid was 4.2 g and ascitic albumin was 2.8 g. CA125 elevated at 190. Rule out malignancy. Serum ascitic albumin is less than 1, making it that this ascites is not related to portal hypertension. 2. Right-sided pleural effusion. Status post thoracentesis. Cytology in the thoracentesis pleural fluid is still pending. RECOMMENDATIONS: 1. Continue with diuretics. 2. Continue with Protonix. 3. Await cytology results. 4. We will follow with you closely. Thank you for this consultation. MMODL / IJN: [id number] /
--- NOTE | 2019-07-28 20:14 | PN ---
PROGRESS NOTE DATE OF SERVICE: 07/28/2019 This 88-year-old woman who was admitted with acute hypoxic respiratory failure with bilateral pleural effusion, ascites, had fluid tapped. The patient underwent ascitic tap about 1.8 L of straw-colored fluid yesterday. The patient is being closely monitored at this time. The possibility of CHF is being considered at this time. Multiple consultants following the patient closely. Irregular soft tissue density around the omentum was also noted. As for the labs, hemoglobin 11.3 and the patient also had hypoalbuminemia. Alpha 1 antitrypsin was 208 and CA 195 antigen was 190, normal being 30. The CMV IgG was reactive. PAST MEDICAL HISTORY: Reviewed. REVIEW OF SYSTEMS: Cardiovascular system: No angina. Respiration as mentioned earlier. GI as mentioned earlier. no dysuria. Nervous system: No numbness, no weakness. CURRENT MEDICATIONS: Reviewed and include: 1. Aspirin 81 mg. 2. Lipitor 40 mg. 3. Lasix 20 mg IV b.i.d. 4. Synthroid 50 mcg p.o. daily. 5. Antivert 25 mg p.o. daily. 6. Melatonin 5 mg p.o. q.h.s. 7. Morphine sulfate 2 mg IV q.4h p.r.n. 8. Zofran. 9. Ditropan XL 10 mg. 10.Protonix 40 mg p.o. daily. PHYSICAL EXAM: Patient is alert, oriented x3. Pulse 68, blood pressure 117/65, respiration 16, temperature 98 degrees, pulse ox 91 percent on room air. HEENT: Conjunctivae normal. Oral mucosa moist. NECK is no jugular venous distention. No carotid bruit. No lymph node enlargement. Cardiovascular systems: S1, S2 muffled. Respirations: Breath sounds diminished in the bases. A few scattered rhonchi and crackles. ABDOMEN: Soft, obese, minimal tenderness. LEGS no edema. No swelling. NERVOUS SYSTEM: No focal deficits. LAB STUDIES: Hemoglobin 11.3, sodium 139, potassium 3.7. Other labs are noted. ASSESSMENT: 1. Shortness of breath with bilateral pleural effusion, left more than the right with ascites, possibly congestive heart failure. 2. Congestive heart failure, acute exacerbation. 3. Ascites, rule out cirrhosis liver and chronic liver disease. 4. Elevated CA-125 antigen. 5. Gastroesophageal reflux disease. 6. Hyperlipidemia. 7. History of pneumonia. 8. History of hypothyroidism. 9. History of appendectomy. 10.History of back surgery. 11.History of breast surgery. 12.History of cardiac catheterization. RECOMMENDATIONS AND DISCUSSION: This 88-year-old woman who presented with multiple complex medical issues, at this time I recommend to continue the current management and symptomatic treatment. Patient is on IV diuretics. We will monitor the patient closely and ascitic tap has been done. Multiple evaluations have been conducted. I would also recommend evaluation by Dr. Vickers regarding high CA-125. We will continue to monitor. Prognosis guarded because of the multiple complex medical issues. See orders for further details. Medication reconciliation was checked. MMODL / IJN: [id number] /
[2019-07-29] MEDS: MELATONIN 5 MG TABLET PO SCH ×2 (05:13→21:32)
[2019-07-29] MEDS: LEVOTHYROXINE 50 MCG TAB PO SCH (06:24)
[2019-07-29] MEDS: ATORVASTATIN 40 MG TAB PO SCH (08:21)
[2019-07-29] MEDS: ASPIRIN 81 MG PO SCH (08:21)
[2019-07-29] MEDS: PANTOPRAZOLE 40 MG TABLET PO SCH (08:21)
[2019-07-29] MEDS: OXYBUTYNIN XL 5 MG TAB.ER.24 PO SCH (08:21)
[2019-07-29] MEDS: MECLIZINE 25 MG TAB PO SCH (08:21)
[2019-07-29] MEDS: FUROSEMIDE 10 MG/ML 2 ML VIAL IV SCH ×2 (08:21→21:32)
--- NOTE | 2019-07-29 12:38 | P.PN ---
Subjective Progress Note Date: 07/29/19 Principal diagnosis: Shortness of breath secondary to moderate-sized pleural effusion, ascites This is a pleasant 88-year-old female patient who presented yesterday to the emergency department because of worsening shortness of breath and abdominal distention. On chest exit the patient was noted to have bilateral pleural effusions. She was also noted to have some abdominal distention and lower extremity edema. She was having orthopnea. She was having some new onset constipation. No melanotic stool. No active cardiac disease. No history of congestion heart failure. No angina. No palpitation. No fever chills or night sweats. No other complaints otherwise. A CT angiogram of the chest was done in the emergency department and it showed no this of any pulmonary embolism. There was small to moderate-sized pleural effusion. There was also ascites. The white cell count is not elevated at 8.1. D-dimer was at 6.9 without evidence of any pulmonary embolism. Electrodes are all within normal limits. Otherwise, the review of system essentially negative. She claims that she has lost around 20 pounds but she has a good appetite. Albumin level is at 3.3. ProBNP level was was 1650 and LFTs are within normal limits. Lactic acid level was nonelevated. On 07/26/2019 patient seen in follow-up on selective care unit, she is awake and alert, in no acute distress, she had her CT of the abdomen and pelvis yesterday which showed moderate left and small to moderate right pleural effusions with adjacent opacities, small hiatal hernia, subtle nodularity of the liver, mild omental caking with and mesenteric lymph nodes measuring up to 9 mm in the aortocaval retroperitoneal lymph node mildly enlarged at 1.1 cm. There was moderate pelvic ascites. Patient is on 2 L of oxygen and her pulse ox is 92%, hemodynamically she stable, afebrile, there is a possibility of paracentesis being scheduled for later today, we'll proceed with left-sided thoracentesis today, we spoke about with the patient, and she is agreeable to proceed. He remains on IV Lasix, at 20 mg every 12 hours, she is in negative fluid balance of 925 ML. His labs have an reviewed, showing white blood cell, 6.7, hemoglobin of 11.3, sodium is 140, potassium is 3.6, chloride is 102, CO2 31, B1 is 20 creatinine 0.93 On 07/27/2019 patient seen in follow-up on selective care unit, she is awake and alert, in no acute distress, patient is status post right-sided thoracentesis yesterday, pleural fluid cytology has been sent and pending at this time, pleural fluid analysis revealed exudative fluid based on fluid protein content of 4.13 g. No complaints of worsening difficulty breathing, she remains on IV diuretics, 20 mg every 12 hours. Breathing seems to be pretty comfortable, she is on 3 L of oxygen pulse ox of 95%, hemodynamically she is stable, no fever or chills. Tumor markers have been ordered, CEA and CA 199, and are within normal limits, paracentesis with fluid studies is being considered, GI consultation note has been noted. Awaiting results of the thoracentesis pathology. The patient is seen today 07/28/2019 in follow-up on the selective care unit. She is currently sitting up in a chair at the bedside. Awake and alert in no acute distress. Breathing a bit easier today compared to yesterday. She did undergo paracentesis yesterday with 1.8 L of straw-colored fluid removed. The pleural fluid cytology from her thoracentesis on 07/26/2019 is still pending. C A 125 was found to be high at 190. The patient states she did have a hysterectomy with bilateral salpingo-oophorectomy many many years ago. Computed tomography scan of the abdomen and pelvis did reveal some irregular soft tissue density along the omentum may representing omental caking. Infectious and neoplastic etiologies are within the differential. Patient is seen today 07/29/2019 and follow-up on the selective care unit. She is currently resting comfortably in bed. Awake and alert in no acute distress. Maintaining good O2 saturations in the 90s on 2 L/m per nasal cannula. She did desaturate to 86% while on room air. May require home oxygen. She remains on IV diuretics. Objective - Vital Signs Vital signs: Vital Signs Temp 97.9 F 07/29/19 08:10 Pulse 72 07/29/19 11:50 Resp 18 07/29/19 11:50 BP 106/57 07/29/19 11:50 Pulse Ox 91 L 07/29/19 11:50 Intake & Output 07/28/19 07/29/19 07/29/19 18:59 06:59 18:59 Intake Total 358 240 Balance 358 240 Weight 81.8 kg Intake: Oral 358 240 Other: Voiding Method Toilet Toilet Toilet # Voids 1 2 - Exam GENERAL EXAM: Alert, very pleasant, 88-year-old female patient, on 2 L/m per nasal cannula, comfortable in no apparent distress. HEAD: Normocephalic/atraumatic. EYES: Normal reaction of pupils, equal size. Conjunctiva pink, sclera white. NOSE: Clear with pink turbinates. THROAT: No erythema or exudates. NECK: No masses, no JVD, no thyroid enlargement, no adenopathy. CHEST: No chest wall deformity. Symmetrical expansion. LUNGS: Equal air entry with crackles in the bilateral posterior bases. CVS: Regular rate and rhythm, normal S1 and S2, no gallops, no murmurs, no rubs ABDOMEN: Soft, nontender. No hepatosplenomegaly, normal bowel sounds, no guarding or rigidity. EXTREMITIES: No clubbing, no edema, no cyanosis, 2+ pulses and upper and lower extremities. MUSCULOSKELETAL: Muscle strength and tone normal. SPINE: No scoliosis or deformity SKIN: No rashes CENTRAL NERVOUS SYSTEM: No focal deficits, tone is normal in all 4 extremities. PSYCHIATRIC: Alert and oriented -3. Appropriate affect. Intact judgment and insight. - Labs CBC & Chem 7: 07/26/19 06:32 07/27/19 05:52 Labs: Microbiology - Last 24 Hours (Table) 07/27/19 14:05 Gram Stain - Preliminary Ascites Fluid Body Fluid Culture - Preliminary Assessment and Plan Assessment: 1 subacute shortness of breath with development of small to moderate-sized pleural effusion, status post thoracentesis on 07/26/2019, cytology pending. 2 irregular soft tissue density along the omentum that may represent omental caking, infectious and neoplastic etiologies are in the differential, CA125 elevated at 190 2 lower extremity edema 3 ascites, status post paracentesis with 1.8 L of straw-colored fluid removed on 07/27/2019 4 hypertension 5 hypothyroidism 6 hyperlipidemia Plan: The patient was seen and evaluated by Dr. Gonsalves Currently stable from the pulmonary standpoint Pleural fluid cytology is still pending CA125 190 Omentum soft tissue density with possible infectious versus neoplastic etiology Continue the current treatment plan We'll continue to follow I, the cosigning physician, performed a history & physical examination of the patient. Lungs sounds with crackles in the bilateral posterior bases. Maintaining good O2 saturations in the 90s on 2 L/m per nasal cannula I discussed the assessment and plan of care with my nurse practitioner, Hortensia Barragan. I attest to the above note as dictated by her.
--- NOTE | 2019-07-29 13:36 | P.PN ---
Progress Note - Text Progress Note Date: 07/29/19 Chart reviewed, Ca125 noted, CT AP omental caking. Pending pleural and ascitic cytology. Formal consult to follow in AM
--- NOTE | 2019-07-29 14:42 | PN ---
PROGRESS NOTE DATE OF SERVICE: 07/29/2019 The patient is an 88-year-old pleasant white female admitted to the hospital with new onset ascites status post large-volume paracentesis yesterday and cytology is still pending. She denies any symptoms today. Has some pain at the site of paracentesis. Nausea, vomiting, shortness of breath have improved. PHYSICAL EXAMINATION: Appears comfortable, no apparent distress. Vital signs are stable. Blood pressure is 112/86, pulse rate 76, temperature 98.2 HEENT examination unremarkable. Conjunctivae pink. Sclerae anicteric. Oral cavity no lesions. NECK: No JVD or lymph node enlargement. CHEST: Clear to auscultation. HEART: Regular rate and rhythm. ABDOMEN: Soft. Bowel sounds are positive. No organomegaly. EXTREMITIES: No pedal edema. SKIN: No rashes. NEUROLOGIC: Alert and oriented x3. No focal deficits. LABS: No labs are available from today. Ascitic fluid cytology results still pending. IMPRESSION: 1. New onset ascites. So far ascitic fluid results are consistent with non portal hypertensive causes. CA-125 is 190. Oncology has been consulted. 2. Nodular appearing liver on recent imaging studies, underlying cirrhosis cannot be excluded. 3. Pleural effusion status post thoracentesis. Patient's shortness of breath has significantly improved. RECOMMENDATIONS: 1. Await cytology results. Continue current diuretic regimen. 2. Continue regular diet. 3. Will follow with you closely. Thank you for this consultation. MMODL / IJN: [id number] /
--- NOTE | 2019-07-29 15:24 | XR ---
EXAMINATION TYPE: XR chest 1V DATE OF EXAM: 07/29/2019 COMPARISON: 07/26/2019 INDICATION: Short of breath TECHNIQUE: Single frontal view of the chest is obtained. FINDINGS: The heart size is normal. The pulmonary vasculature is normal. Bibasilar infiltrates are present. Small bilateral pleural effusions are present. Pleural effusions a ppear diminished from comparison. IMPRESSION: 1. Bibasilar infiltrates with diminishing small bilateral pleural effusions
--- NOTE | 2019-07-30 00:13 | PN ---
PROGRESS NOTE DATE OF SERVICE: 07/29/2019 I am covering for Dr. Burleson. This 88-year-old woman admitted with shortness of breath, bilateral pleural effusion. Patient had thoracocentesis. The patient also had CHF acute exacerbation. Patient also had ascites. The cytology of the pleural fluid on 07/25 is awaited at this time. The most recent chest x-ray which was reviewed personally by me showed still evidence of bilateral pleural effusion right more the left. Patient will be closely monitored. PAST MEDICAL HISTORY: Reviewed. REVIEW OF SYSTEMS: CARDIOVASCULAR SYSTEM: No angina. RESPIRATORY SYSTEM: As mentioned earlier. GI: Slight abdominal discomfort diffusely. : No dysuria. NERVOUS SYSTEM: Mild diffuse weakness. CURRENT MEDICATIONS: Current medications are reviewed and include: 1. Aspirin 81 mg. 2. Lipitor 40 mg. 3. Lasix 20 mg IV b.i.d. 4. Synthroid 50 mcg p.o. daily. 5. Antivert. 6. Melatonin. 7. Morphine sulfate. 8. Zofran. 9. Ditropan. 10.Protonix. PHYSICAL EXAMINATION: The patient is alert and oriented x3. Pulse 77, blood pressure 120/63, respiration 18, temperature 97.5, pulse ox 86% on room air. HEENT: Conjunctivae normal. Oral mucosa moist. NECK: No jugular venous distention. No carotid bruit. No lymph node enlargement. CARDIOVASCULAR: S1, S2 muffled. RESPIRATORY: Breath sounds diminished at the bases. A few scattered rhonchi. ABDOMEN: Soft, obese, ascites present. LEGS: No edema. No swelling. NERVOUS SYSTEM: No focal deficits. LABS: WBC 6.7, hemoglobin 11.3, sodium 139, potassium 3.7, BUN is 18. Total protein 5.8. Albumin is 2.8. CA-125 is 190.4. ASSESSMENT: 1. Shortness of breath with bilateral pleural effusion left more than the right with ascites, possible congestive heart failure acute exacerbation. 2. Ascites, rule out cirrhosis of liver and chronic liver disease. 3. Elevated CA-125 antigen, rule out malignancy. 4. Gastroesophageal reflux disease. 5. Hyperlipidemia. 6. History of pneumonia. 7. History of hypothyroidism. 8. History of appendectomy. 9. History of back surgery. 10.History of breast surgery. 11.History of cardiac catheterization. 12.Possible omental caking. RECOMMENDATIONS AND DISCUSSION: Continue current medications. Continue symptomatic treatment. Will await the final cytology. Otherwise, continue with diuretics cautiously. Renal function has been closely monitored. Also recommended Hematology Oncology evaluation as well. The abdominal and pelvis CT scan showed fluid overload and other findings but omental caking was also suspected. We will continue to monitor. Overall prognosis extremely guarded because of multiple complex medical issues. MMODL / IJN: [id number] /
[2019-07-30] MEDS: LEVOTHYROXINE 50 MCG TAB PO SCH (06:06)
[2019-07-30 06:17] LABS: EBV - VCA IgM <10.0 U/mL (<36.0)
[2019-07-30] MEDS: MECLIZINE 25 MG TAB PO SCH (08:59)
[2019-07-30] MEDS: ATORVASTATIN 40 MG TAB PO SCH (08:59)
[2019-07-30] MEDS: FUROSEMIDE 10 MG/ML 2 ML VIAL IV SCH (08:59)
[2019-07-30] MEDS: OXYBUTYNIN XL 5 MG TAB.ER.24 PO SCH (08:59)
[2019-07-30] MEDS: ASPIRIN 81 MG PO SCH (08:59)
[2019-07-30] MEDS: PANTOPRAZOLE 40 MG TABLET PO SCH (08:59)
[2019-07-30] MEDS ORDERED: DOCUSATE 100 MG CAP PO SCH ×2 (09:00→21:00)
[2019-07-30 09:10] VITALS: RESP 20
[2019-07-30 11:35] VITALS: BP 114/62; PULSE 67; TEMP 98.3
--- NOTE | 2019-07-30 12:36 | P.DS ---
Providers Date of admission: 07/24/19 15:32 Expected date of discharge: 07/30/19 Attending physician: Yinka Burleson Consults: 07/24/19 15:30 Consult Physician Urgent Consulting Provider: Gracy Gonsalves Consult Reason/Comments: Pleural effusions bilateral Do you want consulting provider notified?: Yes 07/26/19 11:16 Consult Physician Routine Consulting Provider: Martin Manjarrez Consult Reason/Comments: New ascites,abn.ct,Dx parancentesis? Do you want consulting provider notified?: Yes 07/28/19 19:36 Consult Physician Routine Consulting Provider: Tim Vickers Consult Reason/Comments: high ca 125 Do you want consulting provider notified?: Yes Primary care physician: Yinka Burleson [facility] Course: Final Diagnoses: -Acute hypoxic respiratory failure secondary to bilateral pleural effusions, accompanied by ascites, bilateral lower extremity edema, etiology unclear. Possible acute CHF, diastolic dysfunction. Status post left thoracentesis, pleural cytology pending. -New abdominal ascites, accompanied by lower extremity edema, etiology unclear, Workup in progress ,possible malignancy with compressive abdominal mass involving lungs and lower extremities, workup in progress. Status post paracentesis, cytology/culture results pending. -Inguinal hernia -Hypertension -Hyperlipidemia -Gastroesophageal reflux disease -Hypothyroidism -[id number] mitral regurgitation -Moderate tricuspid regurgitation -Moderate pulmonary hypertension -Irregular density along the omentum with omental caking, infectious, neoplastic etiologies in the differential -Possible chronic liver disease Hospital course:This is a pleasant 88-year-old female with history of gastroesophageal reflux disease, hyperlipidemia, hypothyroidism and multiple other medical issues, presented to the ER with increased shortness of breath, abdominal pain. Reports constipation but states last bowel movement was yesterday, nonbloody. Patient reported she has been having high fevers, dizzines s, no cough, no congestion, positive orthopnea. Reports mild edema bilateral lower legs with left leg greater than right. Doppler of left leg reported negative. Apparently patient followed-up with PCP last week regarding dizziness, abdominal bloating and placed on Antivert and Lasix. Currently abdomen soft but significantly distended with bilateral lower quadrants more firmer and reports diffuse tenderness.Chest x-ray reported small bilateral pleural effusions. KUB reported no acute abdomen. Elevated d-dimer. Chest CTA reported no acute pulmonary embolism, spinal moderate bilateral pleural effusions, ascites. Denies chest pain, palpitations. EKG reported sinus rhythm first degree AV block with occasional PVCs, troponin negative 1. Hematology unremarkable. Chemistry unremarkable with BUN 19, creatinine 0.85. Glucose 131, albumin 3.3. UA reporting moderate leukocytes, negative nitrates elevated urine WBCs of 7, occasional bacteria, hyaline casts. Afebrile, lactic acid with in normal limits, normal WBC. Short of breath, requiring 3 L nasal cannula to maintain O2 sats in the 90s, and a patient who does not wear oxygen at home. Mildly hypertensive.Echo pending. 07/26/2019 Abdomen,pelvis CT with contrast completed yesterday reporting suspected fluid overload ,moderate left and small moderate right pleural effusion, prominent bibasilar consolidation, small hiatal hernia ,Contour nodularity of the liver, moderate abdominopelvic ascites, mild omental caking and mesenteric lymph nodes measuring up to 9 mm in aortocaval retroperitoneal lymph node mildly enlarged at 1.1 cm, nonspecific calcifications right lower quadrant, possible underlying cirrhosis. Vital signs stable, maintaining O2 sats in the 90s and 2 L nasal cannula. Afebrile, normal WBC. Echo reported normal LV function, EF 55-60%, [id number] mitral regurgitation, moderate tricuspid regurgitation, moderate pulmonary hypertension. 07/27/2019 Underwent left thoracentesis yesterday with 800 MLS turbid dark yellow pleural effusion drained, tolerated procedure well. Exudative with Cytology pending. CA 19-9,CEA WNL,Diuresing well on Lasix IV push with 24-hour I&O reflecting a negative fluid balance. Reports decreased shortness of breath .Maintaining O2 sats in the 90s on 3 L nasal cannula. Scheduled for paracentesis this afternoon. Significant clinical improvement. Paracentesis in pleural cytology results pending. Patient eager for discharge. Patient will be discharged home today pending final DC recommendations and clearance from oncology, GI, pulmonary, in a stable condition with guarded prognosis. Patient has been instructed to follow up outpatient for results and further options/plan regarding cytology results. The impression and plan of care has been dictated as directed. : I performed a history and examination of this patient, discussed the same with the dictator. I agree with the dictator's note ,documented as a scribe. Any additional findings or plans will be noted. The impression and plan of care has been dictated as directed. : I performed a history and examination of this patient, discussed the same with the dictator. I agree with the dictator's note ,documented as a scribe. Any additional findings or plans will be noted. Patient Condition at Discharge: Stable Plan - Discharge Summary Discharge Rx Participant: No New Discharge Prescriptions: New Docusate [Colace] 100 mg PO BID #60 cap Continue Aspirin [Adult Low Dose Aspirin EC] 81 mg PO DAILY Levothyroxine Sodium [Synthroid] 50 mcg PO DAILY Atorvastatin [Lipitor] 40 mg PO DAILY Omeprazole [PriLOSEC] 40 mg PO DAILY Meclizine [Antivert] 25 mg PO DAILY Tolterodine ER [Detrol LA] 4 mg PO DAILY Furosemide [Lasix] 20 mg PO DAILY Discharge Medication List Aspirin [Adult Low Dose Aspirin EC] 81 mg PO DAILY 12/24/16 [History] Atorvastatin [Lipitor] 40 mg PO DAILY 12/24/16 [History] Levothyroxine Sodium [Synthroid] 50 mcg PO DAILY 12/24/16 [History] Omeprazole [PriLOSEC] 40 mg PO DAILY 12/24/16 [History] Furosemide [Lasix] 20 mg PO DAILY 07/24/19 [History] Meclizine [Antivert] 25 mg PO DAILY 07/24/19 [History] Tolterodine ER [Detrol LA] 4 mg PO DAILY 07/24/19 [History] Docusate [Colace] 100 mg PO BID #60 cap 07/30/19 [Rx] Follow up Appointment(s)/Referral(s): Tim Vickers MD [STAFF PHYSICIAN] - 1 Week Yinka Burleson DO [Primary Care Provider] - 3 Days [facility], [NON-STAFF] - Gracy Gonsalves MD [STAFF PHYSICIAN] - 3 Days Activity/Diet/Wound Care/Special Instructions: Patient will require home oxygen at discharge secondary to CHF Patient will obtain pleural and abdominal cytology results outpatient.
--- NOTE | 2019-07-30 13:46 | PN ---
PROGRESS NOTE DATE OF SERVICE: 07/30/2019 Patient is an 88-year-old pleasant white female admitted to hospital with new onset ascites and pleural effusion, status post thoracentesis and paracentesis and fluid cytology is still pending. She denies any symptoms. She is feeling much better. PHYSICAL EXAMINATION: Appears comfortable, in no apparent distress. Vital signs are stable. Blood pressure is 140/62, pulse rate 67, temperature 98 degrees. HEENT: Examination unremarkable, conjunctivae are pink, sclerae nonicteric, oral cavity no lesions. NECK: No JVD or lymph node enlargement. CHEST: Clear to auscultation. HEART: Regular rate and rhythm. ABDOMEN: Soft, bowel sounds are positive, no organomegaly. EXTREMITIES: No pedal edema. NEURO: She is alert and oriented x3. No focal deficits. LABS: Not available from today. IMPRESSION: 1. New onset ascites. Fluid analysis consistent with non portal hypertensive causes. CA 99 is 190. Oncology has been consulted, cytology from ascites fluid and pleural fluid is still pending. 2. Nodular appearing liver on recent imaging studies, possible underlying cirrhosis. RECOMMENDATIONS: Avoid fluid cytology. If patient is being discharged home today, she was advised to follow up with Oncology on outpatient basis. Thank you for this consultation. MMODL / IJN: [id number] /
[2019-07-30 14:04] LABS: Albumin 2.56 g/dL (3.80-4.90); Gamma Globulin 1.05 g/dL (0.70-1.50)
--- NOTE | 2019-07-30 14:13 | P.PN ---
Subjective Progress Note Date: 07/30/19 Principal diagnosis: Pleural effusion and ascites This is a pleasant 88-year-old female patient who presented yesterday to the emergency department because of worsening shortness of breath and abdominal distention. On chest exit the patient was noted to have bilateral pleural e ffusions. She was also noted to have some abdominal distention and lower extremity edema. She was having orthopnea. She was having some new onset constipation. No melanotic stool. No active cardiac disease. No history of congestion heart failure. No angina. No palpitation. No fever chills or night sweats. No other complaints otherwise. A CT angiogram of the chest was done in the emergency department and it showed no this of any pulmonary embolism. There was small to moderate-sized pleural effusion. There was also ascites. The white cell count is not elevated at 8.1. D-dimer was at 6.9 without evidence of any pulmonary embolism. Electrodes are all within normal limits. Otherwise, the review of system essentially negative. She claims that she has lost around 20 pounds but she has a good appetite. Albumin level is at 3.3. ProBNP level was was 1650 and LFTs are within normal limits. Lactic acid level was nonelevated. On 07/26/2019 patient seen in follow-up on selective care unit, she is awake and alert, in no acute distress, she had her CT of the abdomen and pelvis yesterday which showed moderate left and small to moderate right pleural effusions with adjacent opacities, small hiatal hernia, subtle nodularity of the liver, mild omental caking with and mesenteric lymph nodes measuring up to 9 mm in the aortocaval retroperitoneal lymph node mildly enlarged at 1.1 cm. There was moderate pelvic ascites. Patient is on 2 L of oxygen and her pulse ox is 92%, hemodynamically she stable, afebrile, there is a possibility of paracentesis being scheduled for later today, we'll proceed with left-sided thoracentesis today, we spoke about with the patient, and she is agreeable to proceed. He remains on IV Lasix, at 20 mg every 12 hours, she is in negative fluid balance of 925 ML. His labs have an reviewed, showing white blood cell, 6.7, hemoglobin of 11.3, sodium is 140, potassium is 3.6, chloride is 102, CO2 31, B1 is 20 creatinine 0.93 On 07/27/2019 patient seen in follow-up on selective care unit, she is awake and alert, in no acute distress, patient is status post right-sided thoracentesis yesterday, pleural fluid cytology has been sent and pending at this time, pleural fluid analysis revealed exudative fluid based on fluid protein content of 4.13 g. No complaints of worsening difficulty breathing, she remains on IV diuretics, 20 mg every 12 hours. Breathing seems to be pretty comfortable, she is on 3 L of oxygen pulse ox of 95%, hemodynamically she is stable, no fever or chills. Tumor markers have been ordered, CEA and CA 199, and are within normal limits, paracentesis with fluid studies is being considered, GI consultation note has been noted. Awaiting results of the thoracentesis pathology. The patient is seen today 07/28/2019 in follow-up on the selective care unit. She is currently sitting up in a chair at the bedside. Awake and alert in no acute distress. Breathing a bit easier today compared to yesterday. She did undergo paracentesis yesterday with 1.8 L of straw-colored fluid removed. The pleural fluid cytology from her thoracentesis on 07/26/2019 is still pending. CA 125 was found to be high at 190. The patient states she did have a hysterectomy with bilateral salpingo-oophorectomy many many years ago. Computed tomography scan of the abdomen and pelvis did reveal some irregular soft tissue density along the omentum may representing omental caking. Infectious and neoplastic etiologies are within the differential. Patient is seen today 07/29/2019 and follow-up on the selective care unit. She is currently resting comfortably in bed. Awake and alert in no acute distress. Maintaining good O2 saturations in the 90s on 2 L/m per nasal cannula. She did desaturate to 86% while on room air. May require home oxygen. She remains on IV diuretics. Patient was evaluated today on 07/30/19, patient is doing well, relatively asymptomatic. No cough no wheezing no shortness of breath. Cytology from ple ural effusion is pending. However patient could be discharged home and follow up on outpatient basis. Objective - Vital Signs Vital signs: Vital Signs Temp 98.3 F 07/30/19 11:33 Pulse 67 07/30/19 11:33 Resp 20 07/30/19 11:33 BP 114/62 07/30/19 11:33 Pulse Ox 93 L 07/30/19 11:33 Intake & Output 07/29/19 07/30/19 07/30/19 18:59 06:59 18:59 Intake Total 200 180 Output Total 1450 Balance -1250 180 Weight 81.1 kg Intake: Oral 200 180 Output: Urine 1450 Other: Voiding Method Toilet Toilet Toilet # Voids 2 1 # Bowel Movements 1 - Exam GENERAL EXAM: Revealed a 89-year-old female in no distress. Asymptomatic HEENT: Left, EOMI, no icterus. CHEST: No chest wall deformity. Symmetrical expansion. LUNGS: Equal air entry with crackles in the bilateral posterior bases. CVS: Regular rate and rhythm, normal S1 and S2, no gallops, no murmurs, no rubs ABDOMEN: Soft, nontender. No hepatosplenomegaly, normal bowel sounds, no guarding or rigidity. EXTREMITIES: No clubbing, no edema, no cyanosis, 2+ pulses and upper and lower extremities. MUSCULOSKELETAL: Muscle strength and tone normal. SPINE: No scoliosis or deformity SKIN: No rashes CENTRAL NERVOUS SYSTEM: No focal deficits, tone is normal in all 4 extremities. PSYCHIATRIC: Alert and oriented -3. Appropriate affect. Intact judgment and insight. - Labs CBC & Chem 7: 07/26/19 06:32 07/27/19 05:52 Labs: Abnormal Lab Results - Last 24 Hours (Table) 07/27/19 Range/Units 05:52 Albumin (PEP) 2.56 L (3.80-4.90) g/dL [id number] 0.43 H (0.10-0.40) g/dL Microbiology - Last 24 Hours (Table) 07/27/19 14:05 Gram Stain - Preliminary Ascites Fluid Body Fluid Culture - Preliminary Assessment and Plan Assessment: Impression: Pleural effusion, status post thoracentesis on 08/10, cytology is pending. Irregular soft tissue density along the omentum, concerning for possible malignancy with elevated CA 125. Patient is status post paracentesis. Hypertension. Hypothyroidism. Hyperlipidemia Recommendation: Agree with discharge planning today. Follow-up on outpatient basis with Dr. Gonsalves. Will follow when necessary. Time with Patient: Less than 30
[2019-07-30 14:27] LABS: Liver/Kidney Microsome Antibod 1.2 UNITS (<=20)
[2019-07-30 14:28] LABS: Smooth Muscle Antibody 8 UNITS (<20)
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
== END 2019-07-30 15:38 | disposition home health service (06) | DRG 291 ==
LOC: EC 11:14 → 3SCARD 15:32 → MERGE 15:32
PROVIDERS: ADMIT Family Medicine; ATTEND Family Medicine
PROC: 0W9B3ZX Drainage of Left Pleural Cavity, Percutaneous Approach, Diagnostic (ICD-10-PCS; principal; 2019-07-26)
PROC: 0W9G3ZX Drainage of Peritoneal Cavity, Percutaneous Approach, Diagnostic (ICD-10-PCS; 2019-07-27)
DX: I11.0 Hypertensive heart disease with heart failure (principal); I50.31 Acute diastolic (congestive) heart failure; J96.01 Acute respiratory failure with hypoxia; R18.8 Other ascites; C78.2 Secondary malignant neoplasm of pleura; Z20.828 Contact with and (suspected) exposure to other viral communicable diseases; E03.9 Hypothyroidism, unspecified; E78.00 Pure hypercholesterolemia, unspecified; E78.5 Hyperlipidemia, unspecified; E88.09 Other disorders of plasma-protein metabolism, not elsewhere classified; I08.1 Rheumatic disorders of both mitral and tricuspid valves; I27.20 Pulmonary hypertension, unspecified; I44.0 Atrioventricular block, first degree; K21.9 Gastro-esophageal reflux disease without esophagitis; K40.90 Unilateral inguinal hernia, without obstruction or gangrene, not specified as recurrent; K44.9 Diaphragmatic hernia without obstruction or gangrene; K59.00 Constipation, unspecified; K76.9 Liver disease, unspecified; I49.3 Ventricular premature depolarization; R19.00 Intra-abdominal and pelvic swelling, mass and lump, unspecified site; Z79.82 Long term (current) use of aspirin; Z11.59 Encounter for screening for other viral diseases; Z79.899 Other long term (current) drug therapy; Z79.890 Hormone replacement therapy; Z87.01 Personal history of pneumonia (recurrent); Z87.11 Personal history of peptic ulcer disease; Z90.49 Acquired absence of other specified parts of digestive tract; Z90.710 Acquired absence of both cervix and uterus; Z98.42 Cataract extraction status, left eye; Z98.41 Cataract extraction status, right eye; Z96.1 Presence of intraocular lens; Z88.0 Allergy status to penicillin; Z91.041 Radiographic dye allergy status; Z80.9 Family history of malignant neoplasm, unspecified
CPT/HCPCS: 36415; 49083; 51798; 71045; 71046; 71275; 74018; 74176; 80048; 80053; 81001; 82042; 82103; 82105; 82378; 82390; 82728; 82746; 82945; 83516; 83540; 83550; 83605; 83615; 83735; 83880; 84157; 84165; 84443; 84484; 85025; 85379; 85610; 85730; 86038; 86301; 86304; 86376; 86644; 86645; 86665; 86706; 86709; 86803; 87070; 87075; 87205; 87340; 88108; 88305; 88341; 88342; 89050; 93005; 93306; 96374; 96375; 99285

== ENCOUNTER → 2019-08-17 | Outpatient (CLI) | payer MEDICARE ==
--- NOTE | 2019-08-17 11:26 | US ---
EXAMINATION TYPE: US chest DATE OF EXAM: 08/17/2019 COMPARISON: NONE CLINICAL HISTORY: J90 pleural effusion. Chest marking TECHNIQUE: Targeted ultrasound of the posterior lower bilateral hemithoraces EXAM MEASUREMENTS: Right Pleural Effusion pocket size: 10.8 cm Right skin surface to fluid distance: 2.6 cm Left Pleural Effusion pocket size: 10.2 cm Left skin surface to fluid distance: 3.0 cm Lung seen within anterior portion of fluid pocket Right side marked for possible thoracentesis outside the dept. Left side marked for possible thoracentesis outside the dept. Pulmonologists are able to review the images in the patient?s EMR. IMPRESSIONS: 1. Thick pleural fluid collection within the right chest. Similar thick fluid is within the left. Mar ked for thoracentesis.
--- NOTE | 2019-08-17 12:30 | P.PCN ---
Date of Procedure: 08/17/19 Preoperative Diagnosis: Left-sided pleural effusion Postoperative Diagnosis: Left-sided pleural effusion Procedure(s) Performed: Thoracentesis Anesthesia: local Surgeon: Gracy Gonsalves Estimated Blood Loss (ml): 0 Pathology: other Condition: stable Disposition: same day Operative Findings: A timeout was completed verifying the correct procedure site positioning. Ultrasound-guided thoracentesis was done. The pleural fluid on the left was marked and the pocket was identified. Patient was positioned and prepped and draped in the usual sterile fashion. Lidocaine was used to anesthetize the area. A thoracentesis catheter was inserted in the pleural space. The fluid was removed and total amount of fluid was around 1 L. The fluid was turbid dark yellowish and there was no evidence of any complications and the chest x-rays to follow. The patient tolerated the procedure well without any major difficulties and there were no bedside complications. The patient will be discharged home once chest x-rays confirmed to be negative for pneumothorax.
== END | disposition home or self-care (01) ==
LOC: MERGE 10:20 → RADUSWWP 10:45
PROVIDERS: ATTEND Internal Medicine Critical Care Medicine
DX: J90 Pleural effusion, not elsewhere classified (principal); Z88.0 Allergy status to penicillin; Z91.048 Other nonmedicinal substance allergy status
CPT/HCPCS: 71045; 76604

== ENCOUNTER → 2019-08-17 | Day surgery (SDC) | payer MEDICARE ==
[~2019-08-17] MED LIST: SODIUM CHLORIDE 0.9% 500 ML 500 ML in EMPTY BAG 1 BAG IV PRN
[2019-08-17 11:19] VITALS: RESP 18
[2019-08-17 11:23] VITALS: TEMP 98.2
[2019-08-17 12:53] VITALS: BP 122/72; PULSE 75
--- NOTE | 2019-08-17 13:12 | XR ---
EXAMINATION TYPE: XR chest 1V portable DATE OF EXAM: 08/17/2019 COMPARISON: 07/29/2019 INDICATION: Postthoracentesis left side TECHNIQUE: Single frontal view of the chest is obtained. FINDINGS: The heart size is normal. The pulmonary vasculature is normal. Small right pleural effusion is present. Previous left pleural effusion is largely resolved. No thora x is evident. IMPRESSION: 1. No pneumothorax postthoracentesis left side. 2. Small right pleural effusion
== END ==
LOC: PROCWHC3 11:03
PROVIDERS: ATTEND Internal Medicine Critical Care Medicine
DX: J90 Pleural effusion, not elsewhere classified (principal); C78.6 Secondary malignant neoplasm of retroperitoneum and peritoneum; K21.9 Gastro-esophageal reflux disease without esophagitis; E03.9 Hypothyroidism, unspecified; E78.5 Hyperlipidemia, unspecified; I10 Essential (primary) hypertension; R60.0 Localized edema; Z90.49 Acquired absence of other specified parts of digestive tract; Z98.42 Cataract extraction status, left eye; Z98.41 Cataract extraction status, right eye; Z80.9 Family history of malignant neoplasm, unspecified; Z98.890 Other specified postprocedural states; Z79.82 Long term (current) use of aspirin; Z79.890 Hormone replacement therapy; Z79.899 Other long term (current) drug therapy; Z88.0 Allergy status to penicillin; Z91.048 Other nonmedicinal substance allergy status
CPT/HCPCS: 32554; 71045

== ENCOUNTER 2019-08-27 10:21 | Day surgery (SDC) | payer MEDICARE ==
[2019-08-27 11:13] VITALS: RESP 16; TEMP 97.9
[2019-08-27 12:22] VITALS: BP 143/72; PULSE 77
--- NOTE | 2019-08-27 12:29 | P.PCN ---
Date of Procedure: 08/27/19 Preoperative Diagnosis: right sided pleural effusion Postoperative Diagnosis: Right sided pleural effusion Procedure(s) Performed: Thoracentesis Anesthesia: local Surgeon: Gracy Gonsalves Estimated Blood Loss (ml): 0 Pathology: other Condition: stable Disposition: same day Operative Findings: A time out was performed and the chest x-ray was reviewed, the appropriate side was confirmed and marked. My hands were washed immediately prior to the procedure. I wore a surgical cap, mask with protective eyewear, sterile gown and sterile gloves throughout the procedure. The patient was prepped and draped in a sterile manner using chlorhexidine scrub after the appropriate level was percussed and confirmed by ultrasound. 1% lidocaine was used to anesthesize the skin, subcutaneous tissue, superior aspect of the rib periosteum and parietal pleura. A finder needle was then introduced over the superior aspect of the rib to locate the pleural fluid; 1 cc turbid colored fluid was aspirated at a depth of approximately 20cm. A 10-blade scalpel was used to lolis the skin at the insertion site. The [id number] needle was then introduced through the skin incision into the pleural space using negative aspiration pressure and the red colometric indicator to confirm appropriate positioning of the needle. The thoracentesis catheter was then threaded without difficulty 900 ml of yellow colored fluid was removed without difficulty. The catheter was then removed. No immediate complications were noted during the procedure. A post-procedure chest x-ray is pending at the time of this note. The fluid will be sent for studies. Estimated blood loss is 0cc.
--- NOTE | 2019-08-27 12:52 | XR ---
EXAMINATION TYPE: XR chest 1V portable DATE OF EXAM: 08/27/2019 COMPARISON: Prior chest x-ray 08/17/2019 HISTORY: Status post right thoracentesis TECHNIQUE: Single frontal view of the chest is obtained. FINDINGS: Subsegmental basilar atelectatic changes are present. There is opacity at the left lung ba se obscuring the hemidiaphragm, blunting of the left costophrenic angle is noted. No evident pneumoth orax. Aorta is dense. Bone mineralization is reduced. IMPRESSION: No evident complication status post thoracentesis.
== END 2019-08-27 14:14 ==
LOC: PROCWHC3 10:21
PROVIDERS: ATTEND Internal Medicine Critical Care Medicine
DX: J90 Pleural effusion, not elsewhere classified (principal); C78.6 Secondary malignant neoplasm of retroperitoneum and peritoneum; C80.1 Malignant (primary) neoplasm, unspecified; R60.0 Localized edema; K21.9 Gastro-esophageal reflux disease without esophagitis; I10 Essential (primary) hypertension; E78.5 Hyperlipidemia, unspecified; E03.9 Hypothyroidism, unspecified; Z91.048 Other nonmedicinal substance allergy status; Z88.0 Allergy status to penicillin; Z79.82 Long term (current) use of aspirin; Z79.899 Other long term (current) drug therapy; Z79.890 Hormone replacement therapy; Z98.890 Other specified postprocedural states; Z90.49 Acquired absence of other specified parts of digestive tract; Z98.41 Cataract extraction status, right eye; Z98.42 Cataract extraction status, left eye; Z90.5 Acquired absence of kidney; Z90.710 Acquired absence of both cervix and uterus; Z80.9 Family history of malignant neoplasm, unspecified
CPT/HCPCS: 32554; 71045

== ENCOUNTER → 2019-08-27 | Outpatient (CLI) | payer MEDICARE ==
--- NOTE | 2019-08-27 10:39 | US ---
EXAMINATION TYPE: US chest DATE OF EXAM: 08/27/2019 COMPARISON: US, CT CLINICAL HISTORY: J90 PLEURAL EFFUSION. TECHNIQUE: Targeted ultrasound of the posterior right chest EXAM MEASUREMENTS: Right Pleural Effusion pocket size: 10.8 cm A/P and was marked per order Right skin surface to fluid distance: 2.6 cm A/P Left Pleural Effusion pocket size: 10.1 cm A/P with mobile lung tissue noted within fluid pocket. Left skin surface to fluid distance: 3.0 cm A/P US findings: echogenic, mobile contents noted within right lung fluid. Right side was marked for possible thoracentesis outside the dept. Pulmonologists are able to review the images in the patient?s EMR. IMPRESSIONS: As above
== END | disposition home or self-care (01) ==
LOC: RADUSWWP 10:03
PROVIDERS: ATTEND Internal Medicine Critical Care Medicine
DX: J90 Pleural effusion, not elsewhere classified (principal)
CPT/HCPCS: 76604

== ENCOUNTER 2019-09-06 02:30 | Observation (INO) | payer MEDICARE ==
[2019-09-06 03:19] LABS: Partial Thromboplastin Time 22.4 sec (22.0-30.0); Prothrombin Time 10.6 sec (9.0-12.0)
[2019-09-06 03:22] LABS: Albumin 3.1 g/dL (3.5-5.0); Calcium 8.8 mg/dL (8.4-10.2); Potassium 3.1 mmol/L (3.5-5.1); Total Bilirubin 0.6 mg/dL (0.2-1.3); Total Protein 6.3 g/dL (6.3-8.2)
[2019-09-06 03:29] LABS: Basophils # (A) 0.1 k/uL (0-0.2); Basophils % (A) 1 %; Eosinophils # (A) 0.2 k/uL (0-0.7); Eosinophils % (A) 2 %; HCT 38.1 % (34.0-46.0); HGB 12.4 gm/dL (11.4-16.0); Hypochromasia Slight; Lymphocytes # (A) 1.5 k/uL (1.0-4.8); Lymphocytes % (A) 20 %; MCH 29.2 pg (25.0-35.0); MCHC 32.6 g/dL (31.0-37.0); MCV 89.8 fL (80.0-100.0); Mean Platelet Volume 7.2; Monocytes # (A) 0.7 k/uL (0-1.0); Monocytes % (A) 9 %; Neutrophils # (A) 4.8 k/uL (1.3-7.7); Neutrophils % (A) 64 %; Platelet Count 324 k/uL (150-450); RBC 4.24 m/uL (3.80-5.40); RDW 14.8 % (11.5-15.5); WBC 7.4 k/uL (3.8-10.6)
--- NOTE | 2019-09-06 03:29 | XR ---
EXAMINATION TYPE: XR chest 2V DATE OF EXAM: 09/06/2019 COMPARISON: 08/27/2019 HISTORY: Difficulty breathing TECHNIQUE: 2 views FINDINGS: There is blunting of the costophrenic angles. There is mild pulmonary vascular congestion. Thoracic aorta is atheromatous. There is infiltrate and atelectasis at the lung bases. IMPRESSION: There is chronic congestive heart failure that appears worse than last exam. There is inc reased pleural fluid.
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
[2019-09-06] MEDS ORDERED: NALOXONE 0.4 MG/ML 1 ML VIAL IV PRN (03:59)
[2019-09-06] MEDS ORDERED: Potassium Replacement Protocol 1 EACH MISC MISCELLANE PRN (03:59)
[2019-09-06] MEDS: POTASSIUM CHLORIDE ER 20 MEQ TAB.ER PO SCH ×2 (04:56→06:18)
[2019-09-06] MEDS: LEVOTHYROXINE 50 MCG TAB PO SCH (06:18)
[2019-09-06] MEDS: FUROSEMIDE 20 MG TAB PO SCH (07:38)
[2019-09-06] MEDS: ASPIRIN 81 MG PO SCH (07:38)
[2019-09-06] MEDS: ATORVASTATIN 40 MG TAB PO SCH (07:38)
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
--- NOTE | 2019-09-06 12:37 | XR ---
EXAMINATION TYPE: XR chest 1V portable DATE OF EXAM: 09/06/2019 COMPARISON: Chest x-ray same dated earlier time HISTORY: Status post left thoracentesis TECHNIQUE: Single frontal view of the chest is obtained. FINDINGS: Some improved aeration noted at the left lung base. No evident pneumothorax. No other sign ificant interval change. IMPRESSION: No evident complication status post left thoracentesis
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
--- NOTE | 2019-09-06 16:14 | P.PCN ---
Date of Procedure: 09/06/19 Preoperative Diagnosis: Left-sided pleural effusion Postoperative Diagnosis: Left-sided pleural effusion Procedure(s) Performed: Thoracentesis Anesthesia: local Surgeon: Gracy Gonsalves Estimated Blood Loss (ml): 0 Pathology: none sent Condition: stable Operative Findings: A time out was performed and the chest x-ray was reviewed, the appropriate side was confirmed and marked. My hands were washed immediately prior to the procedure. I wore a surgical cap, mask with protective eyewear, sterile gown and sterile gloves throughout the procedure. The patient was prepped and draped in a sterile manner using chlorhexidine scrub after the appropriate level was percussed and confirmed by ultrasound. 1% lidocaine was used to anesthesize the skin, subcutaneous tissue, superior aspect of the rib periosteum and parietal pleura. A finder needle was then introduced over the superior aspect of the rib to locate the pleural fluid; 2colored fluid was aspirated at a depth of approximately 2 cm. A 10-blade scalpel was used to lolis the skin at the insertion site. The [id number]-k-Bqckbfrf needle was then introduced through the skin incision into the pleural space using negative aspiration pressure and the red colometric indicator to confirm appropriate positioning of the needle. The thoracentesis catheter was then threaded without difficulty. 1500 ml of turbid colored fluid was removed without difficulty. The catheter was then removed. No immediate complications were noted during the procedure. A post-procedure chest x-ray is pending at the time of this note. The fluid will not be sent for studies. Estimated blood loss is 0cc
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
[2019-09-07 04:16] VITALS: RESP 18
[2019-09-07] MEDS: LEVOTHYROXINE 50 MCG TAB PO SCH (06:26)
[2019-09-07 08:08] LABS: Basophils # (A) 0.1 k/uL (0-0.2); Basophils % (A) 1 %; Eosinophils # (A) 0.1 k/uL (0-0.7); Eosinophils % (A) 2 %; HCT 39.6 % (34.0-46.0); Hypochromasia Slight; Lymphocytes # (A) 1.6 k/uL (1.0-4.8); Lymphocytes % (A) 20 %; MCH 27.6 pg (25.0-35.0); MCHC 30.4 g/dL (31.0-37.0); MCV 90.5 fL (80.0-100.0); Mean Platelet Volume 7.3; Monocytes # (A) 0.6 k/uL (0-1.0); Monocytes % (A) 7 %; Neutrophils # (A) 5.4 k/uL (1.3-7.7); Neutrophils % (A) 67 %; Platelet Count 291 k/uL (150-450); RBC 4.37 m/uL (3.80-5.40); RDW 14.9 % (11.5-15.5)
[2019-09-07 08:24] LABS: Calcium 8.5 mg/dL (8.4-10.2); Potassium 3.7 mmol/L (3.5-5.1)
[2019-09-07 08:43] VITALS: BP 143/73; PULSE 72; TEMP 97.6
--- NOTE | 2019-09-07 09:41 | XR ---
EXAMINATION TYPE: XR chest 1V DATE OF EXAM: 09/07/2019 COMPARISON: 09/06/2019 INDICATION: Postthoracentesis TECHNIQUE: Single frontal view of the chest is obtained. FINDINGS: The heart size is mildly prominent. The pulmonary vasculature is normal. Left lower lobe infiltrate is present. There are small bilateral pleural effusions. The right pleural effusion is diminished. No pneumothorax is evident IMPRESSION: 1. No pneumothorax postthoracentesis. 2. Small bilateral residual pleural effusions. 3. Left lower lobe infiltrate
[2019-09-07] MEDS: FUROSEMIDE 20 MG TAB PO SCH (09:52)
[2019-09-07] MEDS: ATORVASTATIN 40 MG TAB PO SCH (09:53)
[2019-09-07] MEDS: ASPIRIN 81 MG PO SCH (09:53)
--- NOTE | 2019-09-07 10:44 | P.DS ---
Providers Date of admission: 09/06/19 03:59 Expected date of discharge: 09/07/19 Attending physician: Yinka Burleson Consults: 09/06/19 04:00 Consult Physician Urgent Consulting Provider: Gracy Gonsalves Consult Reason/Comments: establsihed patient, pleural effusion Do you want consulting provider notified?: Yes, Notify in am 09/06/19 09:27 Consult Physician Routine Consulting Provider: Benjy Chavarria Consult Reason/Comments: pleurix catheter placement Do you want consulting provider notified?: Yes Primary care physician: Yinka Burleson [facility] Course: Final Diagnoses: -Acute hypoxic respiratory failure secondary to recurrent malignant bilateral pleural effusions, metastatic adenocarcinoma -Recently diagnosed abdominal ascites, with compressive abdominal mass involvin g lungs and lower extremities. Recent paracentesis and 1, thoracentesis 3. Status post therapeutic bilateral thoracentesis -Ascites secondary to the above -Inguinal hernia -Hypertension -Hyperlipidemia -Gastroesophageal reflux disease -Hypothyroidism -[id number] mitral regurgitation -Moderate tricuspid regurgitation -Moderate pulmonary hypertension Hospital course:This is a pleasant 88-year-old female with history of hypoxic respiratory failure secondary to newly diagnosed metastatic adenocarcinoma with malignant bilateral pleural effusions,recently diagnosed abdominal ascites,s/p paracentesis with compressive abdominal mass involving lungs and lower extremities,gastroesophageal reflux disease, hyperlipidemia, hypothyroidism and multiple other medical issues, presented to the ER with increased shortness of breath. Chest x-ray reporting bilateral pleural effusions. EKG reporting sinus rhythm with PVCs, nonspecific T-wave abnormality. Maintaining O2 sats in the 90s on 3 L nasal cannula. Afebrile, normal WBC; hematology unremarkable. Potassium 3.1 and received supplementation, increased to 3.6. BUN 31 creatinine 1.05. Evaluated by both pulmonary and cardiothoracic surgery. Initially declined palliative Pleurx catheter and underwent bilateral thoracentesis. After deep breath, patient has decided to proceed with Pleurx catheter. Outpatient appointment to be scheduled with cardiothoracic surgery prior to discharge. Significant clinical improvement. Patient is being discharged home in a stable condition with guarded prognosis. The impression and plan of care has been dictated as directed. : I performed a history and examination of this patient, discussed the same with the dictator. I agree with the dictator's note ,documented as a scribe. Any additional findings or plans will be noted. Patient Condition at Discharge: Stable Plan - Discharge Summary Discharge Rx Participant: Yes New Discharge Prescriptions: Continue Aspirin [Adult Low Dose Aspirin EC] 81 mg PO DAILY Levothyroxine Sodium [Synthroid] 50 mcg PO DAILY Atorvastatin [Lipitor] 40 mg PO DAILY Omeprazole [PriLOSEC] 40 mg PO DAILY Meclizine [Antivert] 25 mg PO DAILY Tolterodine ER [Detrol LA] 4 mg PO DAILY Furosemide [Lasix] 20 mg PO DAILY Discharge Medication List Aspirin [Adult Low Dose Aspirin EC] 81 mg PO DAILY 12/24/16 [History] Atorvastatin [Lipitor] 40 mg PO DAILY 12/24/16 [History] Levothyroxine Sodium [Synthroid] 50 mcg PO DAILY 12/24/16 [History] Omeprazole [PriLOSEC] 40 mg PO DAILY 12/24/16 [History] Furosemide [Lasix] 20 mg PO DAILY 07/24/19 [History] Meclizine [Antivert] 25 mg PO DAILY 07/24/19 [History] Tolterodine ER [Detrol LA] 4 mg PO DAILY 07/24/19 [History] Follow up Appointment(s)/Referral(s): Yinka Burleson DO [Primary Care Provider] - 1 Week Gracy Gonsalves MD [STAFF PHYSICIAN] - 2 Weeks Activity/Diet/Wound Care/Special Instructions: Confirm scheduled Pleurx catheter appointment with cardiothoracic surgery prior to discharge
--- NOTE | 2019-09-07 11:31 | P.PN ---
Subjective Progress Note Date: 09/07/19 Principal diagnosis: Acute hypoxemic respiratory failure secondary to recurrent bilateral pleural effusions This is a very pleasant 88-year-old female patient who follows with Dr. Burleson as her primary care provider. She has a history of hypothyroidism, gastroesophageal reflux disease, hyperlipidemia. She was also hospitalized just over a month ago with shortness of breath and found to have bilateral pleural effusions and ascites. She had undergone thoracentesis 3 and paracentesis times one. 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 She has not undergone any treatment thus far. She re-presented to the emergency room early this morning with worsening shortness of breath. Chest x-ray again revealed evidence of bilateral pleural effusions, left greater than right and she was admitted for the same. She is seen this morning on the regular medical floor. She is currently sitting up bedside. Awake and alert in no acute distress. She is maintaining O2 saturation in the mid 90s on 3 L/m per nasal cannula. She's afebrile. Hemodynamically stable. White count 7.4. Hemoglobin 12.4. Platelet count 324,000. INR 1.0. Sodium 140. Potassium 3.6. Creatinine 1.05. She is currently on oral Lasix. On 09/07/2019 patient seen in follow-up on general medical floor. She patient declined placement of Pleurx catheter, and we proceeded with left-sided thoracentesis with removal of 1500 mL of turbid colored fluid without any difficulty, today who presented with right-sided thoracentesis, and drained 950 mL of turbid pleural fluid from the right side, patient tolerated procedure very well, postoperative chest x-ray showed no pneumothorax, small bilateral residual pleural effusions, and a left lower lobe infiltrate, patient is on 3 L of oxygen a pulse ox of 94%, hemodynamically she stable, no fever or chills, breathing is nonlabored, she is tolerating ablation, she is anticipated to be going home today and we will see her in follow-up on an outpatient setting. Objective - Vital Signs Vital signs: Vital Signs Temp 97.6 F 09/07/19 07:00 Pulse 72 09/07/19 07:00 Resp 18 09/07/19 07:00 BP 143/73 09/07/19 07:00 Pulse Ox 94 L 09/07/19 07:00 Intake & Output 09/06/19 09/07/19 09/07/19 18:59 06:59 18:59 Weight 79.379 kg Other: Voiding Method Toilet Toilet # Voids 3 3 - Exam GENERAL EXAM: Alert, very pleasant, 88-year-old white female, on 2 L of oxygen pulse ox 94% comfortable in no apparent distress. HEAD: Normocephalic/atraumatic. EYES: Normal reaction of pupils, equal size. Conjunctiva pink, sclera white. NOSE: Clear with pink turbinates. THROAT: No erythema or exudates. NECK: No masses, no JVD, no thyroid enlargement, no adenopathy. CHEST: No chest wall deformity. Symmetrical expansion. LUNGS: Equal air entry with diminished breath sounds over right lung base CVS: Regular rate and rhythm, normal S1 and S2, no gallops, no murmurs, no rubs ABDOMEN: Soft, nontender. No hepatosplenomegaly, normal bowel sounds, no guarding or rigidity. EXTREMITIES: No clubbing, no edema, no cyanosis, 2+ pulses and upper and lower extremities. MUSCULOSKELETAL: Muscle strength and tone normal. SPINE: No scoliosis or deformity SKIN: No rashes CENTRAL NERVOUS SYSTEM: Alert and oriented -3. No focal deficits, tone is normal in all 4 extremities. PSYCHIATRIC: Alert and oriented -3. Appropriate affect. Intact judgment and insight. - Labs CBC & Chem 7: 09/07/19 07:03 09/07/19 07:03 Labs: Abnormal Lab Results - Last 24 Hours (Table) 09/07/19 09/07/19 Range/Units 07:03 07:03 MCHC 30.4 L (31.0-37.0) g/dL Carbon Dioxide 31 H (22-30) mmol/L BUN 29 H (7-17) mg/dL Glucose 104 H (74-99) mg/dL Assessment and Plan Plan: Assessment: 1 Acute hypoxemic respiratory failure secondary to recurrent bilateral pleural effusions, status post left-sided thoracentesis on 09/06/2019 would removal of 1.5 L of turbid pleural fluid, and right-sided thoracentesis today on 09/07/2019 would removal of 950 mL of turbid pleural fluid 2 Recurrent bilateral pleural effusions with 3 prior thoracentesis and a positive for metastatic adenocarcinoma consistent with non-mucinous ovarian versus primary peritoneal in origin. Patient declined any treatment 3 Ascites secondary to metastatic adenocarcinoma, with previous paracentesis 4 Hypertension 5 Hypothyroidism 6 Hyperlipidemia Plan: Patient tolerated right-sided thoracentesis very well, 950 mL of turbid pleural fluid was removed, postoperative chest x-ray has been reviewed, no evidence of pneumatosis, with some small residual pleural effusions. Hemodynamically she stable, she is on minimal amount of supplemental oxygen, obtain home oxygen assessment, ambulate the patient, patient is anticipated to be discharged home today, she will need outpatient follow-up for repeat chest x-ray, she will need follow-up with Dr. Gonsalves in the office in 7-10 days, and she will likely need insertion of Pleurx catheters at sometime in the near future as reaccumulation of the pleural fluid is anticipated. I performed a history & physical examination of the patient and discussed their management with my nurse practitioner, Melissa Shook. I reviewed the nurse practitioner's note and agree with the documented findings and plan of care. Lung sounds are positive for diminished breath sounds The findings and the impression was discussed with the patient. I attest to the documentation by the nurse practitioner. Time with Patient: Less than 30
--- NOTE | 2019-09-07 13:20 | P.PCN ---
Date of Procedure: 09/07/19 Preoperative Diagnosis: Right-sided pleural effusion Postoperative Diagnosis: Right-sided pleural effusion Procedure(s) Performed: Thoracentesis Anesthesia: local Surgeon: Gracy Gonsalves Estimated Blood Loss (ml): 0 Pathology: none sent Condition: stable Disposition: floor Operative Findings: A time out was performed and the chest x-ray was reviewed, the appropriate side was confirmed and marked. My hands were washed immediately prior to the procedure. I wore a surgical cap, mask with protective eyewear, sterile gown and sterile gloves throughout the procedure. The patient was prepped and draped in a sterile manner using chlorhexidine scrub after the appropriate level was percussed and confirmed by ultrasound. 1% lidocaine was used to anesthesize the skin, subcutaneous tissue, superior aspect of the rib periosteum and parietal pleura. A finder needle was then introduced over the superior aspect of the rib to locate the pleural fluid; 2colored fluid was aspirated at a depth of approximately 2 cm. A 10-blade scalpel was used to lolis the skin at the insertion site. The [id number]-[id number] needle was then introduced through the skin incision into the pleural space using negative aspiration pressure and the red colometric indicator to confirm appropriate positioning of the needle. The thoracentesis catheter was then threaded without difficulty. 950 ml of turbid colored fluid was removed without difficulty. The catheter was then removed. No immediate complications were noted during the procedure. A post-procedure chest x-ray is pending at the time of this note. The fluid will not be sent for studies. Estimated blood loss is 0cc
== END 2019-09-07 13:55 | disposition home or self-care (01) ==
LOC: EC 02:30 → 4SSUR 03:59
PROVIDERS: ADMIT Family Medicine; ATTEND Family Medicine
DX: J96.01 Acute respiratory failure with hypoxia (principal); J91.0 Malignant pleural effusion; C18.9 Malignant neoplasm of colon, unspecified; R18.8 Other ascites; R19.09 Other intra-abdominal and pelvic swelling, mass and lump; I11.0 Hypertensive heart disease with heart failure; E03.9 Hypothyroidism, unspecified; I49.3 Ventricular premature depolarization; E78.5 Hyperlipidemia, unspecified; K21.9 Gastro-esophageal reflux disease without esophagitis; Z87.01 Personal history of pneumonia (recurrent); R06.82 Tachypnea, not elsewhere classified; E87.6 Hypokalemia; R35.1 Nocturia; K40.90 Unilateral inguinal hernia, without obstruction or gangrene, not specified as recurrent; I08.1 Rheumatic disorders of both mitral and tricuspid valves; I27.20 Pulmonary hypertension, unspecified; Z90.49 Acquired absence of other specified parts of digestive tract; Z90.710 Acquired absence of both cervix and uterus; Z98.42 Cataract extraction status, left eye; Z98.41 Cataract extraction status, right eye; Z98.890 Other specified postprocedural states; F41.9 Anxiety disorder, unspecified; F32.9 Major depressive disorder, single episode, unspecified; Z80.9 Family history of malignant neoplasm, unspecified; Z79.82 Long term (current) use of aspirin; Z79.890 Hormone replacement therapy; Z79.899 Other long term (current) drug therapy; Z88.0 Allergy status to penicillin; Z91.048 Other nonmedicinal substance allergy status; Z87.11 Personal history of peptic ulcer disease
CPT/HCPCS: 99285; 36415; 93005; 80053; 80048; 84132; 85025 ×2; 85610; 85730; 71045 ×2; 71046; 32555; G0378 ×2; U0003

== ENCOUNTER 2019-09-18 02:12 | Observation (INO) | payer MEDICARE ==
[2019-09-18] MEDS ORDERED: SODIUM CHLORIDE 0.9% 1,000 ML IV STA (02:24)
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
[2019-09-18 02:56] LABS: Basophils # (A) 0.1 k/uL (0-0.2); Basophils % (A) 1 %; Eosinophils # (A) 0.1 k/uL (0-0.7); Eosinophils % (A) 2 %; HCT 36.4 % (34.0-46.0); HGB 11.9 gm/dL (11.4-16.0); Lymphocytes # (A) 1.4 k/uL (1.0-4.8); Lymphocytes % (A) 20 %; MCH 29.4 pg (25.0-35.0); MCHC 32.7 g/dL (31.0-37.0); MCV 89.9 fL (80.0-100.0); Mean Platelet Volume 7.5; Monocytes # (A) 0.6 k/uL (0-1.0); Monocytes % (A) 9 %; Neutrophils # (A) 4.7 k/uL (1.3-7.7); Neutrophils % (A) 65 %; Platelet Count 275 k/uL (150-450); RBC 4.05 m/uL (3.80-5.40); RDW 15.4 % (11.5-15.5); WBC 7.1 k/uL (3.8-10.6)
[2019-09-18 03:05] LABS: Albumin 2.9 g/dL (3.5-5.0); Calcium 8.6 mg/dL (8.4-10.2); Potassium 3.9 mmol/L (3.5-5.1); Total Bilirubin 0.7 mg/dL (0.2-1.3); Total Protein 5.9 g/dL (6.3-8.2)
--- NOTE | 2019-09-18 03:05 | XR ---
EXAMINATION TYPE: XR chest 2V DATE OF EXAM: 09/18/2019 COMPARISON: 09/07/2019 HISTORY: Short of breath TECHNIQUE: FINDINGS: There is some patchy atelectasis at the lung bases. There is bilateral blunting of the cost ophrenic angles. There is no heart failure. There are chest leads. Thoracic aorta is atheromatous. IMPRESSION: Bilateral pleural effusions with basilar atelectasis appears slightly improved on the lef t side and unchanged on the right side compared to old exam.
[2019-09-18 03:10] LABS: Prothrombin Time 10.4 sec (9.0-12.0)
[2019-09-18 03:12] LABS: Partial Thromboplastin Time 18.8 sec (22.0-30.0)
--- NOTE | 2019-09-18 10:01 | CT ---
EXAMINATION TYPE: CT chest wo con DATE OF EXAM: 09/18/2019 COMPARISON: Chest x-ray 09/18/2019 HISTORY: bilateral pleural effusion CT DLP: 278.4 mGycm. Automated Exposure Control for Dose Reduction was Utilized. TECHNIQUE: CT scan of the thorax is performed without IV contrast. FINDINGS: Lack of intravenous contrast could compromise sensitivity. There is some motion on exam. LUNGS: There are bilateral pleural effusions and associated compressive atelectasis, air bronchograms are noted, correlate to exclude pneumonia. Some groundglass opacity is present in the perihilar loca tions. MEDIASTINUM: Lack of IV contrast is noted to limit evaluation for mediastinal and especially hilar ad enopathy. There are no definitive greater than 1 cm hilar or mediastinal lymph nodes, shotty nodes ar e present within the mediastinum. No cardiomegaly or pericardial effusion is seen. There are pineda ry artery calcifications. OTHER: Punctate calcification noted within the liver posteriorly. There may be a hiatal hernia presen t. IMPRESSION: Correlate for congestive heart failure with bilateral pleural effusions, pneumonia not ex cluded. Additional findings above.
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
[2019-09-18] MEDS: FUROSEMIDE 10 MG/ML 4 ML VIAL IV SCH ×2 (12:33→20:20)
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
[2019-09-18] MEDS ORDERED: LACTATED RINGERS 1,000 ML IV ONE (14:53)
[2019-09-18] MEDS ORDERED: MIDAZOLAM 2 MG/2 ML VIAL ONE (15:19)
[2019-09-18] MEDS ORDERED: fentaNYL (PF) 50 MCG/ML 2 ML AMP ONE (15:19)
[2019-09-18] MEDS ORDERED: KETAMINE 10 MG/ML 20 ML VIAL ONE (15:19)
[2019-09-18] MEDS ORDERED: LIDOCAINE 1% INJ 10MG/ML (20 ML MDV) SQ ONE ×2 (15:20)
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
--- NOTE | 2019-09-18 16:32 | XR ---
EXAMINATION TYPE: XR chest 1V portable DATE OF EXAM: 09/18/2019 COMPARISON: Prior chest x-ray 09/18/2019 HISTORY: Pleural catheter placement TECHNIQUE: Single frontal view of the chest is obtained. FINDINGS: There is been interval placement of a pleural catheter at the left lung base. Left pleural effusion has resolved. There is no evident pneumothorax. Right-sided chest tube is also present whic h is present adjacent to the mediastinum. Heart size is likely stable. Probable basilar atelectatic c hanges are present. IMPRESSION: No evident complication status post pleural catheter placements.
[2019-09-18] MEDS ORDERED: HYDROmorphone 0.5 MG/0.5 ML SYRINGE IVP ONE (16:50)
--- NOTE | 2019-09-18 17:28 | PCN ---
PROCEDURE NOTE DATE OF SURGERY: 09/18/2019 PREOPERATIVE DIAGNOSIS: Recurrent bilateral pleural effusion. POSTOPERATIVE DIAGNOSIS: Recurrent bilateral pleural effusion. PROCEDURE: Placement of bilateral PleurX catheters under fluoroscopic guidance. SURGEON: Tunde Reaves MD. INTERACTIVE ACCOUNT MANAGER: JUAN ALBERTO Rm. ANESTHESIA: Local with IV sedation. EBL: Minimal. COMPLICATIONS: None. INDICATION: The patient is an 88-year-old female who was recently diagnosed with metastatic adenocarcinoma. She also has had multiple recurrent bilateral pleural effusions with multiple thoracenteses. Cytology of the pleural fluid was consistent with metastatic ovarian cancer. Placement of bilateral PleurX catheters were recommended. The risks, benefits, and alternatives to this procedure were discussed with the patient. All of her questions were answered. Consent was obtained. FINDINGS: There was approximately 1250 mL of serous fluid drained from the left pleural space. There was approximately 1 L of blood-tinged fluid drained from the right pleural space. PROCEDURE IN DETAIL: The patient was taken to the operating room and placed supine on the operating table. IV sedation was administered. The patient's chest and bilateral flanks were prepped and draped in the usual sterile fashion. I began with the left side. Local anesthetic was infiltrated along the mid-axillary line within the intercostal space. Using a finder needle, the left pleural space was accessed and serous fluid was easily aspirated. A guidewire was then introduced and its position was confirmed in the left pleural space using fluoroscopy. Additional local anesthetic was then infiltrated. A counter incision was created inferiorly and medially. A PleurX catheter was then tunneled between both of these incisions. A dilator followed by a break away sheath was introduced over the guidewire again under fluoroscopic guidance. Both appeared to advance easily. The PleurX catheter was then introduced through the breakaway sheath and its position was confirmed in the pleural space. Approximately 1250 mL of serous fluid was drained from the left pleural space. The counter incision was closed using interrupted Vicryl suture. The Pleur-x catheter itself was secured to the skin using a silk suture. Attention was then turned to the right chest. In a similar fashion, local anesthetic was infiltrated along the midaxillary line in an intercostal space. Using a finder needle, the right pleural space was accessed and bloody fluid was easily aspirated. It was thin and not pily blood. A guidewire was introduced and its position was confirmed in the right pleural space using fluoroscopy. Additional local anesthetic were infiltrated. A counter incision was created. The PleurX catheter was introduced using a tunneler between the 2 incisions. A dilator followed by a break away sheath was intoduced over the guidewire using fluoroscopic guidance. Both appeared to advance easily. The PleurX catheter was then introduced through the breakaway sheath in the right pleural space. Its position was confirmed again using fluoroscopy. Approximately 1 L of bloody fluid was drained from the right pleural space. The counter incision was closed using interrupted Vicryl suture. The PleurX catheter was attached to the skin using a silk suture. Sterile dressings were applied. The patient appeared to tolerate the procedure well. There were no immediate complications. She returned to the recovery room in stable condition. MMODL / IJN: [id number] / MTDD
[2019-09-18] MEDS: PANTOPRAZOLE 40 MG/10 ML VIAL IVP SCH (17:42)
[2019-09-19] MEDS: ACETAMINOPHEN TAB 500 MG TAB PO PRN ×2 (00:36→10:49)
[2019-09-19] MEDS ORDERED: LEVOTHYROXINE 50 MCG TAB PO SCH (06:30)
[2019-09-19 06:53] VITALS: BP 140/69; PULSE 73; RESP 17; TEMP 97.6
[2019-09-19] MEDS: PANTOPRAZOLE 40 MG/10 ML VIAL IVP SCH (06:54)
[2019-09-19] MEDS: FUROSEMIDE 10 MG/ML 4 ML VIAL IV SCH (06:54)
[2019-09-19] MEDS ORDERED: PANTOPRAZOLE 40 MG TABLET PO SCH (07:30)
[2019-09-19 08:32] LABS: HCT 36.6 % (34.0-46.0); HGB 11.8 gm/dL (11.4-16.0); MCH 28.8 pg (25.0-35.0); MCHC 32.1 g/dL (31.0-37.0); MCV 89.7 fL (80.0-100.0); Mean Platelet Volume 7.2; Platelet Count 292 k/uL (150-450); RBC 4.08 m/uL (3.80-5.40); RDW 15.3 % (11.5-15.5); WBC 8.5 k/uL (3.8-10.6)
[2019-09-19 08:41] LABS: Calcium 8.3 mg/dL (8.4-10.2)
[2019-09-19] MEDS ORDERED: ATORVASTATIN 40 MG TAB PO SCH (09:00)
[2019-09-19] MEDS ORDERED: OXYBUTYNIN 10 MG TAB.ER.24 PO SCH (09:00)
[2019-09-19] MEDS ORDERED: MECLIZINE 25 MG TAB PO SCH (09:00)
--- NOTE | 2019-09-19 10:18 | P.DS ---
Providers Date of admission: 09/18/19 02:29 Expected date of discharge: 09/19/19 Attending physician: Yinka Burleson Consults: 09/18/19 02:29 Consult Physician Routine Consulting Provider: Gracy Gonsalves Consult Reason/Comments: known Do you want consulting provider notified?: Yes 09/18/19 09:00 Consult Physician Routine Consulting Provider: Benjy Chavarria Consult Reason/Comments: Effusion Do you want consulting provider notified?: Already Contacted Primary care physician: Yinka Burleson [facility] Course: Final Diagnoses: -Acute hypoxic respiratory failure secondary to recurrent malignant bilateral pleural effusions, metastatic adenocarcinoma, consistent with non-mucinous ovarian versus primary peritoneal origin. Recent therapeutic bilateral thoracentesis 716 and 09/07/2019. Status post bilateral pleurx catheter placement. -History of Recently diagnosed abdominal ascites, with compressive abdominal mass involving lungs and lower extremities, recent paracentesis 07/27/2019. -Inguinal hernia -Hypertension -Hyperlipidemia -Gastroesophageal reflux disease -Hypothyroidism -[id number] mitral regurgitation -Moderate tricuspid regurgitation -Moderate pulmonary hypertension -Obesity, BMI 30 Hospital course:This is an 88-year-old female recently admitted with acute hypoxic respiratory failure secondary to recurrent malignant bilateral pleural effusions, metastatic adenocarcinoma, had bilateral thoracentesis, initially declined Pleurx catheter. At discharge patient decided to proceed with Pleurx catheter and outpatient appointment arranged for this , 09/10/2019. Patient presented to the ER with worsening shortness of breath, cough, congestion. X-ray reporting bilateral pleural effusions with basilar atelectasis, CT reporting bilateral pleural effusions, compressive atelectasis, air bronchograms with some groundglass opacity in the perihilar. Hematology unremarkable, INR 1, sodium 137 potassium 3.9, BUN 29 creatinine 1, magnesium 2. Troponin 0.023, BNP 1320. Afebrile. Maintaining O2 sats in the 90s on 4 L nasal cannula. Evaluated by pulmonary and cardiothoracic surgery. Underwent bilateral Pleurx catheter placement, tolerated procedure well. A.m. chest x-ray pending. Patient will be discharged home today in a stable condition with guarded prognosis pending cardiothoracic surgery teaching with both patient and family of Pleurx catheter maintenance and clearance. The impression and plan of care has been dictated as directed. : I performed a history and examination of this patient, discussed the same with the dictator. I agree with the dictator's note ,documented as a scribe. Any additional findings or plans will be noted. Patient Condition at Discharge: Stable Plan - Discharge Summary New Discharge Prescriptions: New Acetaminophen Tab [Tylenol] 1,000 mg PO Q6HR PRN tab PRN Reason: Fever And/ Or Pain Continue Aspirin [Adult Low Dose Aspirin EC] 81 mg PO DAILY Levothyroxine Sodium [Synthroid] 50 mcg PO DAILY Atorvastatin [Lipitor] 40 mg PO DAILY Omeprazole [PriLOSEC] 40 mg PO DAILY Meclizine [Antivert] 25 mg PO DAILY Tolterodine ER [Detrol LA] 4 mg PO DAILY Furosemide [Lasix] 20 mg PO DAILY Discharge Medication List Aspirin [Adult Low Dose Aspirin EC] 81 mg PO DAILY 12/24/16 [History] Atorvastatin [Lipitor] 40 mg PO DAILY 12/24/16 [History] Levothyroxine Sodium [Synthroid] 50 mcg PO DAILY 12/24/16 [History] Omeprazole [PriLOSEC] 40 mg PO DAILY 12/24/16 [History] Furosemide [Lasix] 20 mg PO DAILY 07/24/19 [History] Meclizine [Antivert] 25 mg PO DAILY 07/24/19 [History] Tolterodine ER [Detrol LA] 4 mg PO DAILY 07/24/19 [History] Acetaminophen Tab [Tylenol] 1,000 mg PO Q6HR PRN tab 09/19/19 [Rx] Follow up Appointment(s)/Referral(s): Yinka Burleson DO [Primary Care Provider] - 3 Days Activity/Diet/Wound Care/Special Instructions: Confirm patient has O2 at home. Pending cardiothoracic clearance. Confirm cardiothoracic follow-up appointment DISCHARGE INSTRUCTIONS: 1. Home care is ordered, they will obtain new bottles. 2. May shower after 24 hours, no baths/hot tubs. 3. Do not drain more than 1 L or 1000 mL from the Pleurx catheter in 24 hours. 4. NEW drainage bottles needed with each drainage. 5. Drainage frequency dictated by the patient's symptoms, may be every day, every other day, weekly or as needed if the patient is symptomatic. 6. Please notify the nurse practitioner or surgeons office if temperature is greater than 101F, excessive pain at insertion site, drainage consistency changes to cloudy or smells bad, catheter falls out. 7. Contact surgery office with weekly drainage amount. May fax the amounts. 8. Once drainage is less than 50 mL 3 times in a row, notify the surgery office for possible removal. Surgery office phone number is [phone], fax number is [phone] The Nurse practitioner numbers: Rosette [phone], Andres [phone]. Discharge Disposition: HOME WITH HOME HEALTH SERVICES
--- NOTE | 2019-09-19 11:04 | XR ---
EXAMINATION TYPE: XR chest 2V DATE OF EXAM: 09/19/2019 COMPARISON: Prior chest x-ray 09/18/2019 HISTORY: Pleural catheter placement TECHNIQUE: Frontal and lateral views of the chest are obtained. FINDINGS: Exam is stable. Prominence of pulmonary artery could be due to pulmonary artery hypertensi on, there are prominent lung volumes which may be indicative of COPD. Aorta is dense. There is bibasi lar increased attenuation with obscured hemidiaphragms. Bilateral pleural catheters are present, the right-sided pleural catheter is adjacent to the mediastinum, left pleural catheter is looped at the l eft lung base. Heart size is stable. IMPRESSION: Stable exam. Bibasilar effusions and associated atelectasis. Pleural catheters as descri bed.
--- NOTE | 2019-09-19 13:57 | P.PN ---
Progress Note - Text Progress Note Date: 09/19/19 Pleurx catheter teaching was completed with the patient and her daughter present at her bedside. Hands on instructions were given. The right Pleurx catheter was drained 450 mL of blood-tinged fluid today. The left Pleurx catheter was not draining today. Questions were answered regarding the Pleurx catheter to the best of my ability. Home care has been ordered. The patient and her daughter were instructed not to drain more than 1 L or 1000 mL from the Pleurx catheter and 24 hour period. New drainage bottle needed for each drainage. Drainage frequency dictated by the patient's symptoms, may be every day, every other day, weekly or as needed if the patient is symptomatic. They were also instructed to contact the cardiothoracic surgery office with weekly drainage amount, may fax the amounts. Once the drainage is less than 50 mL 3 times in a row, notify the cardiothoracic surgery office for possible removal.
--- NOTE | 2019-09-19 14:53 | P.PN ---
Subjective Progress Note Date: 09/19/19 Principal diagnosis: Recurrent bilateral pleural effusions, metastatic This is a 88-year-old female patient of Dr. 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 Patient was previously hospitalized for recurrent bilateral pleural effusions and ascites, and she has undergone thoracentesis, with pleural fluid cytology positive for metastatic adenocarcinoma. During her last admission in the beginning of July patient had left-sided thoracentesis by Dr. Gonsalves with removal of 1.5 L of turbid colored fluid, she also had a right- sided thoracentesis on 08/27/[address] Gonsalves would removal of 900 mL of yellow-colored fluid. Surgical consultation was placed for placement of Pleurx catheter, patient was evaluated by CT surgeon, however at the time she declined placement of Pleurx catheter, she later changed her mind, and she was supposed to have outpatient procedure for placement of bilateral Pleurx catheter this coming 09/20/2019. However patient became increasingly more short of breath, and she could not make it until related to increased dyspnea. On 09/10/2019 she came into the emergency department for evaluation of severe dyspnea, with cough and congestion, persistent weakness. Her chest x-ray shows patchy atelectasis at the lung bases, bilateral pleural effusions with basilar atelectasis. CT chest was completed showing bilateral pleural effusions and ass ociated compressive atelectasis air bronchograms, some groundglass opacity in the perihilar locations. Patient is afebrile, she is currently requiring 4 L of supplemental oxygen with a pulse ox of 94-96%, hemodynamically she is stable, she is awake and alert, she does complain of exertional dyspnea, and there is increased swelling noted in her lower extremities, she is on a daily dose of oral Lasix at 20 mg, and patient has been compliant. Labs have been reviewed, showing CBC within normal limits, INR of 1.0, electrolytes are within normal limits, B1 is 29 creatinine is 1.0, proBNP is 1320, troponin is 0.023 On 09/19/2019 patient seen in follow-up on selective care unit, yesterday patient went for insertion of bilateral Pleurx catheters under fluoroscopic guidance by Dr. Reaves, and she had 1.2 L of output from her right side and 1 L of pleural fluid removed from her left side. She is feeling much better today. Today's chest x-ray shows bibasilar effusions and associated atelectasis. Patient has been diuresed, she has produced 2.3 L and urine output in the last 24 hours, she is breathing much easier, lower extremity edema has improved. No other acute events overnight, follow-up chest x-ray today has been reviewed showing small bilateral pleural effusions and associated atelectasis. Patient is anticipated to be discharged home today, she is awaiting for her son to arrive so they can both receive education uncaring of the Pleurx catheters. Objective - Vital Signs Vital signs: Vital Signs Temp 97.6 F 09/19/19 06:51 Pulse 73 09/19/19 06:51 Resp 17 09/19/19 06:51 BP 140/69 09/19/19 06:51 Pulse Ox 91 L 09/19/19 06:51 Intake & Output 09/18/19 09/19/19 09/19/19 18:59 06:59 18:59 Intake Total 350 Output Total 2310 Balance -1959 Intake: IV 350 Oral 0 Output: Pleural Fluid 2300 Estimated Blood Loss 10 Other: Voiding Method Toilet Toilet # Voids 3 - Exam GENERAL EXAM: Alert, very pleasant, 88-year-old white female, on 2 L of oxygen pulse ox of 92%, comfortable in no apparent distress. HEAD: Normocephalic/atraumatic. EYES: Normal reaction of pupils, equal size. Conjunctiva pink, sclera white. NOSE: Clear with pink turbinates. THROAT: No erythema or exudates. NECK: No masses, no JVD, no thyroid enlargement, no adenopathy. CHEST: No chest wall deformity. Symmetrical expansion. Patient has bilateral Pleurx catheters covered with dressings LUNGS: Equal air entry with no crackles, wheeze, rhonchi or dullness. Diminished breath sounds at bilateral lower lobes CVS: Regular rate and rhythm, normal S1 and S2, no gallops, no murmurs, no rubs ABDOMEN: Soft, nontender. No hepatosplenomegaly, normal bowel sounds, no guarding or rigidity. EXTREMITIES: No clubbing, trace pretibial edema, 2+ pulses and upper and lower extremities. MUSCULOSKELETAL: Muscle strength and tone normal. SPINE: No scoliosis or deformity SKIN: No rashes CENTRAL NERVOUS SYSTEM: Alert and oriented -3. No focal deficits, tone is normal in all 4 extremities. PSYCHIATRIC: Alert and oriented -3. Appropriate affect. Intact judgment and insight. - Labs CBC & Chem 7: 09/19/19 08:02 09/19/19 08:02 Labs: Abnormal Lab Results - Last 24 Hours (Table) 09/19/19 Range/Units 08:02 Carbon Dioxide 33 H (22-30) mmol/L BUN 26 H (7-17) mg/dL Glucose 126 H (74-99) mg/dL Calcium 8.3 L (8.4-10.2) mg/dL Assessment and Plan Plan: Assessment: #1. Recurrent bilateral pleural effusions, related to metastatic adenocarcinoma with the possibility of ovarian or peritoneal origin, status post multiple previous thoracentesis, most recently left-sided thoracentesis on 09/06/2019 with removal of 1.5 L of turbid pleural fluid and right-sided thoracentesis on 09/07/2019 with removal of 950 ML of turbid pleural fluid. Cytology from the pleural fluid collected on 07/26/2019 was positive for metastatic adenocarcinoma with nonmucinous ovarian versus primary peritoneal origin. Patient was awaiting outpatient procedure for placement of bilateral Pleurx catheters on 09/20/2019, however in view of worsening shortness of breath she came into the hospital on 09/18/2019. Status post placement of bilateral Pleurx catheters on 09/18/2019, postoperative day #1, and patient had 1.2 L of pleural fluid removed from the right side in 1 L of pleural fluid removed from the left side immediately after placement of the Pleurx catheters #2. Acute hypoxemic respiratory failure related to the above #3. History of ascites secondary to metastatic adenocarcinoma with previous history of paracentesis, most recently paracentesis was done on 07/27/2019 would removal of 1.8 L of straw-colored fluid. #4. Hypertension #5. Hypothyroidism #6. Hyperlipidemia #7. Moderately severe pulmonary hypertension with moderate tricuspid regurgitation Plan: Patient is doing well, his chest x-ray has been reviewed, she is breathing much easier, she can be switched to a maintenance dose of oral Lasix, lower sternum edema significantly improved, increase activity as tolerated, she is being discharged home today. I performed a history & physical examination of the patient and discussed their management with my nurse practitioner, Melissa Shook. I reviewed the nurse geneva douglas's note and agree with the documented findings and plan of care. Lung sounds are positive for diminished breath sounds. The findings and the impression was discussed with the patient. I attest to the documentation by the nurse practitioner. Time with Patient: Less than 30
== END 2019-09-19 13:15 | disposition home health service (06) ==
LOC: EC 02:12 → 5NMEDONC 02:29 → 4SSUR 14:28
PROVIDERS: ADMIT Family Medicine; ATTEND Family Medicine
DX: C80.1 Malignant (primary) neoplasm, unspecified (principal); J91.0 Malignant pleural effusion; E03.9 Hypothyroidism, unspecified; E66.9 Obesity, unspecified; E78.5 Hyperlipidemia, unspecified; F32.9 Major depressive disorder, single episode, unspecified; F41.9 Anxiety disorder, unspecified; I08.1 Rheumatic disorders of both mitral and tricuspid valves; I10 Essential (primary) hypertension; I27.20 Pulmonary hypertension, unspecified; J96.01 Acute respiratory failure with hypoxia; J98.11 Atelectasis; K21.9 Gastro-esophageal reflux disease without esophagitis; K40.90 Unilateral inguinal hernia, without obstruction or gangrene, not specified as recurrent; Z68.30 Body mass index [BMI] 30.0-30.9, adult; Z79.82 Long term (current) use of aspirin; Z79.890 Hormone replacement therapy; Z79.899 Other long term (current) drug therapy; Z87.11 Personal history of peptic ulcer disease; Z90.710 Acquired absence of both cervix and uterus; Z88.0 Allergy status to penicillin; Z88.3 Allergy status to other anti-infective agents; Z20.828 Contact with and (suspected) exposure to other viral communicable diseases
CPT/HCPCS: 32550; 96374 ×2; 99285; 36415; 93005; 83880; 80053; 80048; 82550; 83735; 84484; 85025; 85027; 85610; 85730; 71045; 71046 ×2; 71250; G0378 ×3; U0003; J2250; J1940 ×2; J0690; J2001; J3010; C9113; J1170

== ENCOUNTER 2019-10-02 01:52 | Observation (INO) | payer MEDICARE ==
[2019-10-02 02:40] LABS: Basophils # (A) 0.1 k/uL (0-0.2); Basophils % (A) 1 %; Eosinophils # (A) 0.2 k/uL (0-0.7); Eosinophils % (A) 2 %; HCT 38.6 % (34.0-46.0); HGB 12.3 gm/dL (11.4-16.0); Lymphocytes # (A) 1.7 k/uL (1.0-4.8); Lymphocytes % (A) 20 %; MCH 28.1 pg (25.0-35.0); MCHC 31.9 g/dL (31.0-37.0); MCV 88.2 fL (80.0-100.0); Mean Platelet Volume 8.1; Monocytes # (A) 0.6 k/uL (0-1.0); Monocytes % (A) 7 %; Neutrophils # (A) 5.7 k/uL (1.3-7.7); Neutrophils % (A) 67 %; Platelet Count 324 k/uL (150-450); RBC 4.37 m/uL (3.80-5.40); RDW 15.5 % (11.5-15.5); WBC 8.6 k/uL (3.8-10.6)
--- NOTE | 2019-10-02 02:45 | XR ---
EXAMINATION TYPE: XR chest 2V DATE OF EXAM: 10/02/2019 COMPARISON: 09/19/2019 HISTORY: Difficulty breathing TECHNIQUE: FINDINGS: There is some blunting of the costophrenic angles. There are bilateral chest tubes at the c ostophrenic angles. There is no gross heart failure. Thoracic aorta is atheromatous. There are no hil ar masses. The bony thorax is intact. IMPRESSION: Bilateral pleural effusions improved compared to last exam. No heart failure seen.
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
[2019-10-02 03:58] LABS: Albumin 2.8 g/dL (3.5-5.0); Calcium 8.9 mg/dL (8.4-10.2); Potassium 4.1 mmol/L (3.5-5.1); Total Bilirubin 0.5 mg/dL (0.2-1.3); Total Protein 5.9 g/dL (6.3-8.2)
[2019-10-02 04:05] LABS: INR 0.9 (<1.2); Prothrombin Time 9.5 sec (9.0-12.0)
[2019-10-02 04:19] LABS: Partial Thromboplastin Time 21.8 sec (22.0-30.0)
[2019-10-02] MEDS ORDERED: NALOXONE 0.4 MG/ML 1 ML VIAL IV PRN (04:38)
--- NOTE | 2019-10-02 07:25 | US ---
EXAMINATION TYPE: US abdomen limited DATE OF EXAM: 10/02/2019 COMPARISON: NONE CLINICAL HISTORY: ascites . distention Patient has large bandages on bilateral flanks that she states are from removing fluid from her lungs . Now she is feeling epigastric fullness. Mild amount of fluid noted on the right side of abdomen, none on the left. IMPRESSION: 1. Small amount of ascites.
[2019-10-02] MEDS: MORPHINE SULFATE 4 MG/ML SYRINGE IV PRN ×2 (11:55→20:46)
[2019-10-02] MEDS ORDERED: ACETAMINOPHEN TAB 500 MG TAB PO PRN (13:24)
[2019-10-02] MEDS ORDERED: MECLIZINE 25 MG TAB PO PRN (13:24)
[2019-10-02] MEDS ORDERED: LOPERAMIDE 2 MG CAP PO PRN (13:24)
[2019-10-02] MEDS: ONDANSETRON 4 MG/2 ML VIAL IVP PRN (16:34)
[2019-10-02] MEDS ORDERED: MELATONIN 5 MG TABLET PO STA (19:39)
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
[2019-10-03] MEDS ORDERED: LEVOTHYROXINE 50 MCG TAB PO SCH (06:30)
[2019-10-03] MEDS: ONDANSETRON 4 MG/2 ML VIAL IVP PRN (06:44)
[2019-10-03] MEDS ORDERED: PANTOPRAZOLE 40 MG TABLET PO SCH (07:30)
[2019-10-03 08:17] VITALS: BP 114/59; PULSE 71; RESP 12; TEMP 97.8
[2019-10-03] MEDS ORDERED: OXYBUTYNIN 10 MG TAB.ER.24 PO SCH (09:00)
[2019-10-03] MEDS ORDERED: OXYBUTYNIN XL 5 MG TAB.ER.24 PO SCH (09:00)
[2019-10-03] MEDS ORDERED: ASPIRIN 81 MG PO SCH (09:00)
[2019-10-03] MEDS ORDERED: FUROSEMIDE 20 MG TAB PO SCH (09:00)
[2019-10-03] MEDS ORDERED: ATORVASTATIN 40 MG TAB PO SCH (09:00)
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
--- NOTE | 2019-10-04 22:52 | P.DS ---
Providers Date of admission: 10/02/19 04:39 Expected date of discharge: 10/03/19 Attending physician: Yinka Burleson Consults: 10/02/19 04:39 Consult Physician Urgent Consulting Provider: Shirlene Li Consult Reason/Comments: need paracentesis Do you want consulting provider notified?: Yes, Notify in am Primary care physician: Yinka Burleson - Discharge Diagnosis(es) (1) Metastatic adenocarcinoma to intra-abdominal site Status: Acute (2) Adenocarcinoma metastatic to both lungs Status: Acute (3) Ascites Status: Acute Priority: High (4) CHF (congestive heart failure) Status: Acute (5) Dyspnea Status: Acute (6) Elevated CA-125 Status: Acute Priority: High (7) History of gastroesophageal reflux (GERD) Status: Acute (8) Pleural effusion Status: Acute Patient Condition at Discharge: Good Plan - Discharge Summary New Discharge Prescriptions: No Action Aspirin [Adult Low Dose Aspirin EC] 81 mg PO DAILY Levothyroxine Sodium [Synthroid] 50 mcg PO DAILY Atorvastatin [Lipitor] 40 mg PO DAILY Omeprazole [PriLOSEC] 40 mg PO DAILY Meclizine [Antivert] 25 mg PO TID PRN PRN Reason: Vertigo Tolterodine ER [Detrol LA] 4 mg PO DAILY Furosemide [Lasix] 20 mg PO DAILY Acetaminophen Tab [Tylenol] 1,000 mg PO Q6HR PRN tab PRN Reason: Fever And/ Or Pain Loperamide HCl [Imodium A-D] 2 mg PO QID PRN PRN Reason: Diarrhea Discharge Medication List Aspirin [Adult Low Dose Aspirin EC] 81 mg PO DAILY 12/24/16 [History] Atorvastatin [Lipitor] 40 mg PO DAILY 12/24/16 [History] Levothyroxine Sodium [Synthroid] 50 mcg PO DAILY 12/24/16 [History] Omeprazole [PriLOSEC] 40 mg PO DAILY 12/24/16 [History] Furosemide [Lasix] 20 mg PO DAILY 07/24/19 [History] Meclizine [Antivert] 25 mg PO TID PRN 07/24/19 [History] Tolterodine ER [Detrol LA] 4 mg PO DAILY 07/24/19 [History] Acetaminophen Tab [Tylenol] 1,000 mg PO Q6HR PRN tab 09/19/19 [Rx] Loperamide HCl [Imodium A-D] 2 mg PO QID PRN 10/02/19 [History] Follow up Appointment(s)/Referral(s): Yinka Burleson DO [Primary Care Provider] - As Needed Patient Instructions/Handouts: Dyspnea (DC) Discharge Disposition: HOME WITH HOME HEALTH SERVICES Plan of Treatment: patient will be discharged home hospice consultation an she wishes to wait to discuss with her tomekae further decisions hospice will contact at discharge
== END 2019-10-03 14:47 | disposition home health service (06) ==
LOC: EC 01:52 → 4SSUR 04:39 → 1SOBS 09:17
PROVIDERS: ADMIT Family Medicine; ATTEND Family Medicine
DX: C78.7 Secondary malignant neoplasm of liver and intrahepatic bile duct (principal); R18.0 Malignant ascites; C78.01 Secondary malignant neoplasm of right lung; C78.02 Secondary malignant neoplasm of left lung; C80.1 Malignant (primary) neoplasm, unspecified; E03.9 Hypothyroidism, unspecified; E78.5 Hyperlipidemia, unspecified; F32.9 Major depressive disorder, single episode, unspecified; F41.9 Anxiety disorder, unspecified; G89.3 Neoplasm related pain (acute) (chronic); Z79.82 Long term (current) use of aspirin; Z79.890 Hormone replacement therapy; Z79.899 Other long term (current) drug therapy; I50.9 Heart failure, unspecified; Z87.11 Personal history of peptic ulcer disease; Z90.710 Acquired absence of both cervix and uterus; Z85.038 Personal history of other malignant neoplasm of large intestine; R97.1 Elevated cancer antigen 125 [CA 125]
CPT/HCPCS: 96374; 96375; 96376 ×2; 99285; 36415; 93005; 83880; 80053; 84484; 85025; 85610; 85730; 71046; 76705; G0378 ×3; J2270; J2405 ×2

== ENCOUNTER 2019-11-13 10:28 | Inpatient (IN) | payer MEDICAID ==
[2019-11-13] MEDS ORDERED: ACETAMINOPHEN IV (For NPO) 1,000 MG in EMPTY BAG 1 BAG IVPB PRN (12:44)
[2019-11-13] MEDS ORDERED: TRIMETHOBENZAMIDE 100 MG/ML 2 ML VIAL IM STA (12:51)
[2019-11-13] MEDS ORDERED: LORazepam 2 MG/ML INJ IV PRN (12:58)
[2019-11-13] MEDS ORDERED: SCOPOLAMINE 1.5MG/72HR PATCH TRANSDERM SCH (13:00)
[2019-11-13] MEDS ORDERED: MAGNESIUM SULFATE-D5W PMX 1 GM in DEXTROSE/WATER 1 100ML.BAG IVPB ONE (13:00)
[2019-11-13] MEDS ORDERED: HYDROcodone/APAP 5-325MG 1 EACH TAB PO PRN (13:07)
[2019-11-13] MEDS ORDERED: MECLIZINE 25 MG TAB PO PRN (13:08)
[2019-11-13] MEDS ORDERED: LOPERAMIDE 2 MG CAP PO PRN (13:08)
[2019-11-13] MEDS: METOCLOPRAMIDE 5 MG/ML 2 ML VIAL IVP SCH ×3 (14:08→23:43)
[2019-11-13] MEDS: PANTOPRAZOLE 40 MG/10 ML VIAL IVP SCH (14:09)
[2019-11-13] MEDS: SODIUM CHLORIDE 0.9% 1,000 ML IV SCH (14:10)
[2019-11-13] MEDS: OXYBUTYNIN 10 MG TAB.ER.24 PO SCH (16:13)
[2019-11-13] MEDS: LEVOTHYROXINE 50 MCG TAB PO SCH (16:13)
[2019-11-14] MEDS: METOCLOPRAMIDE 5 MG/ML 2 ML VIAL IVP SCH ×3 (05:29→18:12)
[2019-11-14] MEDS: LEVOTHYROXINE 50 MCG TAB PO SCH (06:10)
[2019-11-14] MEDS: PANTOPRAZOLE 40 MG/10 ML VIAL IVP SCH (08:13)
[2019-11-14] MEDS ORDERED: MAGNESIUM SULFATE-D5W PMX 1 GM in DEXTROSE/WATER 1 100ML.BAG IVPB ONE (08:20)
[2019-11-14] MEDS ORDERED: IBUPROFEN 400 MG TAB PO PRN (08:25)
[2019-11-14] MEDS ORDERED: ACETAMINOPHEN SUPPOSITORY 650 MG SUPP RECTAL PRN (08:25)
[2019-11-14] MEDS ORDERED: ACETAMINOPHEN TAB 325 MG TAB PO PRN (08:25)
[2019-11-14] MEDS: PROCHLORPERAZINE SUPPOSITORY 25 MG SUPP RECTAL PRN ×2 (10:02→21:54)
[2019-11-14] MEDS: OXYBUTYNIN 10 MG TAB.ER.24 PO SCH (10:11)
[2019-11-14] MEDS: TRIMETHOBENZAMIDE 300 MG CAP PO SCH ×4 (10:12→22:49)
[2019-11-14 10:52] VITALS: BMI 27.6
[2019-11-14] MEDS: SODIUM CHLORIDE 0.9% 1,000 ML IV SCH (11:29)
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
[2019-11-15] MEDS: METOCLOPRAMIDE 5 MG/ML 2 ML VIAL IVP SCH ×5 (00:11→23:22)
[2019-11-15] MEDS: SODIUM CHLORIDE 0.9% 1,000 ML IV SCH ×2 (05:55→23:22)
[2019-11-15] MEDS: LEVOTHYROXINE 50 MCG TAB PO SCH (05:55)
[2019-11-15] MEDS: PANTOPRAZOLE 40 MG/10 ML VIAL IVP SCH (08:06)
[2019-11-15] MEDS: OXYBUTYNIN 10 MG TAB.ER.24 PO SCH (08:07)
[2019-11-15] MEDS: TRIMETHOBENZAMIDE 300 MG CAP PO SCH ×4 (08:07→21:09)
[2019-11-15] MEDS ORDERED: MAGNESIUM SULFATE-D5W PMX 1 GM in DEXTROSE/WATER 1 100ML.BAG IVPB ONE (09:15)
--- NOTE | 2019-11-15 09:53 | P.PN ---
Subjective Progress Note Date: 11/15/19 This is a pleasant 88-year-old female recently diagnosed with metastasis to the lung and liver, metastatic adenocarcinoma , recurrent bilateral pleural effusions status post Pleurx catheter placements, ascites, admitted to hospice. Patient developed intractable nausea and vomiting at home and was brought in to the hospital for better control and comfort. Afebrile, vital signs stable. IV Antiemetics, gentle IV fluid hydration initiated. Denies chest pain, palpitations or increasing shortness of breath. 11/15/2019 maintained on gentle IV fluid hydration .nausea improving but does report emesis this morning. Afebrile, vital signs stable, maintaining O2 sats in the 90s on 2 L nasal cannula. Denies chest pain, palpitations or increased shortness of breath. Objective - Vital Signs Vital signs: Vital Signs Temp 98.1 F 11/15/19 04:51 Pulse 86 11/15/19 04:51 Resp 16 11/15/19 04:51 BP 110/69 11/15/19 04:51 Pulse Ox 94 L 11/15/19 04:51 Intake & Output 11/14/19 11/15/19 11/15/19 18:59 06:59 18:59 Intake Total 850 1190 Balance 850 1190 Weight 73 kg Intake: Intake, IV Titration 850 600 Amount Magnesium Sulfate-D5w Pmx 100 1 gm In Dextrose/Water 1 100ml.bag @ 100 mls/hr IVPB ONCE ONE Rx#: [id number] Sodium Chloride 0.9% 1, 750 600 000 ml @ 50 mls/hr IV . Q20H [facility] Rx#:[id number] Oral 590 Other: Voiding Method Bedpan Bedpan # Voids 3 # Bowel Movements 1 - Exam GENERAL: This is a 88 -year-old , alert and oriented 3, NAD. HEENT: Head is atraumatic, normocephalic. Pupils are equal, round, and reactive to light. Sclerae anicteric. Conjunctivae are clear. Mucus membranes of the mouth are moist. Neck is supple. RESPIRATORY: decreased breath sound fine bibasilar crackles. CARDIOVASCULAR: Regular rate and rhythm. GASTROINTESTINAL: Soft, Miild abdominaldistention noted. Normal active bowel sounds auscultated x 4 quadrants. INTEGUMENTARY: No cyanosis. No jaundice. No rashes noted. No cellulitis noted. EXTREMITIES: 2+ peripheral pulses. peripheral edema. No calf tenderness noted. Right leg bigger than left, nontender, positive pulses,suspect related to tumor compression. NEUROLOGIC: Cranial nerves II-XII intact. Assessment and Plan Assessment: (1) intractable nausea and vomiting, secondary to metastatic adenocarcinoma of intra-abdominal site, tumor compression (2)Adenocarcinoma metastatic to both lungs Status: Acute Code(s): C78.01 - SECONDARY MALIGNANT NEOPLASM OF RIGHT LUNG; C78.02 - SECONDARY MALIGNANT NEOPLASM OF LEFT LUNG SNOMED Code(s): 59697340753584093 (3) mild Ascites Status: Acute Priority: High Code(s): R18.8 - OTHER ASCITES SNOMED Code(s): 111288664 (3) CHF (congestive heart failure), chronic Status: Acute Code(s): I50.9 - HEART FAILURE, UNSPECIFIED SNOMED Code(s): 09764237 (4) right leg larger than left, suspect related to tumor compression, discussed with patient, agreeable with no further workup at this time (5) no code, no CPR, no intubation (6) hospice Plan: Continue on current medication regime ,monitoring and symptomatic treatment. Continue on Anti-emetic regimen , IV magnesium. States hospice nurse normally drains her Pleurx chest tubes on -discussed with RN Rosette to notify hospice to facilitate.Discharge planning in progress for return back home to hospice, possibly later today or tomorrow. Prognosis guarded given multiple complex medical issues. The impression and plan of care has been dictated as directed. : I performed a history and examination of this patient, discussed the same with the dictator. I agree with the dictator's note ,documented as a scribe. Any additional findings or plans will be noted.
[2019-11-15 21:34] VITALS: BP 107/72; PULSE 83; RESP 18; TEMP 97.4
[2019-11-16] MEDS: LEVOTHYROXINE 50 MCG TAB PO SCH (05:40)
[2019-11-16] MEDS: METOCLOPRAMIDE 5 MG/ML 2 ML VIAL IVP SCH (05:40)
[2019-11-16] MEDS: PANTOPRAZOLE 40 MG/10 ML VIAL IVP SCH (08:04)
[2019-11-16] MEDS: OXYBUTYNIN 10 MG TAB.ER.24 PO SCH (08:05)
[2019-11-16] MEDS: TRIMETHOBENZAMIDE 300 MG CAP PO SCH (08:05)
--- NOTE | 2019-11-16 10:36 | P.DS ---
Providers Date of admission: 11/13/19 12:52 Expected date of discharge: 11/16/19 Attending physician: Yinka Burleson Primary care physician: Yinka Burleson [facility] Course: Final diagnoses (1) intractable nausea and vomiting, secondary to metastatic adenocarcinoma of intra-abdominal site, tumor compression (2)Adenocarcinoma metastatic to both lungs Status: Acute Code(s): C78.01 - SECONDARY MALIGNANT NEOPLASM OF RIGHT LUNG; C78.02 - SECONDARY MALIGNANT NEOPLASM OF LEFT LUNG SNOMED Code(s): 91545624912800030 (3) mild Ascites Status: Acute Priority: High Code(s): R18.8 - OTHER ASCITES SNOMED Code(s): 302005556 (3) CHF (congestive heart failure), chronic Status: Acute Code(s): I50.9 - HEART FAILURE, UNSPECIFIED SNOMED Code(s): 60959780 (4) right leg larger than left, suspect related to tumor compression, discussed with patient, agreeable with no further workup at this time (5) no code, no CPR, no intubation (6) hospice Hospital course:This is a pleasant 88-year-old female recently diagnosed with metastasis to the lung and liver, metastatic adenocarcinoma , recurrent bilateral pleural effusions status post Pleurx catheter placements, ascites, admitted to hospice. Patient developed intractable nausea and vomiting at home and was brought in to the hospital for better control and comfort. Afebrile, vital signs stable. IV Antiemetics, gentle IV fluid hydration initiated. Denies chest pain, palpitations or increasing shortness of breath. 11/15/2019 maintained on gentle IV fluid hydration .nausea improving but does report emesis this morning. Afebrile, vital signs stable, maintaining O2 sats in the 90s on 2 L nasal cannula. Denies chest pain, palpitations or increased shortness of breath. Pleurx chest tubes drained, yesterday. Patient maintained on IV fluid hydration with anti-emetics adjusted. Significant clinical improvement. Patient is being discharged today, home , continuing with hospice. The impression and plan of care has been dictated as directed. : I performed a history and examination of this patient, discussed the same with the dictator. I agree with the dictator's note ,documented as a scribe. Any additional findings or plans will be noted. Patient Condition at Discharge: Stable Plan - Discharge Summary Discharge Rx Participant: No New Discharge Prescriptions: New Oxybutynin ER [Ditropan Xl] 10 mg PO DAILY tab.er.24 Omeprazole [PriLOSEC] 20 mg PO AC-BID #60 cap Levothyroxine Sodium [Synthroid] 50 mcg PO DAILY@0630 tab Scopolamine 1.5MG/72Hr Patch [TransDerm Scop] 1 patch TRANSDERM Q72H #3 patch Acetaminophen Suppository [Tylenol Suppository] 650 mg RECTAL Q4HR PRN #10 supp PRN Reason: Fever And/Or Mild Pain Metoclopramide [Reglan] 5 mg PO ACHS #120 tab Trimethobenzamide [Tigan] 300 mg PO QID PRN #120 cap PRN Reason: Nausea Continue Meclizine [Antivert] 25 mg PO TID PRN PRN Reason: Vertigo Loperamide HCl [Imodium A-D] 2 mg PO QID PRN PRN Reason: Diarrhea HYDROcodone/APAP 5-325MG [[place] 5-325] 1 tab PO HS PRN PRN Reason: Pain LORazepam [Ativan] 0.5 mg MUCOUS MEM Q4H PRN PRN Reason: Anxiety Changed Promethazine Suppository [Phenergan] 25 mg RECTAL BID PRN #0 PRN Reason: Nausea Discharge Medication List Meclizine [Antivert] 25 mg PO TID PRN 07/24/19 [History] Loperamide HCl [Imodium A-D] 2 mg PO QID PRN 10/02/19 [History] HYDROcodone/APAP 5-325MG [[place] 5-325] 1 tab PO HS PRN 11/13/19 [History] LORazepam [Ativan] 0.5 mg MUCOUS MEM Q4H PRN 11/13/19 [History] Acetaminophen Suppository [Tylenol Suppository] 650 mg RECTAL Q4HR PRN #10 supp 11/16/19 [Rx] Levothyroxine Sodium [Synthroid] 50 mcg PO DAILY@0630 tab 11/16/19 [Rx] Metoclopramide [Reglan] 5 mg PO ACHS #120 tab 11/16/19 [Rx] Omeprazole [PriLOSEC] 20 mg PO AC-BID #60 cap 11/16/19 [Rx] Oxybutynin ER [Ditropan Xl] 10 mg PO DAILY tab.er.24 09/25/20 [Rx] Promethazine Suppository [Phenergan] 25 mg RECTAL BID PRN #0 11/16/19 [Rx] Scopolamine 1.5MG/72Hr Patch [TransDerm [place]] 1 patch TRANSDERM Q72H #3 patch 11/16/19 [Rx] Trimethobenzamide [Tigan] 300 mg PO QID PRN #120 cap 11/16/19 [Rx] Patient Instructions/Handouts: Pain Management (DC), Hospice (DC)
== END 2019-11-16 12:28 | disposition hospice, inpatient (51) | DRG 951 ==
LOC: 6NMEDSUR 12:52
PROVIDERS: ADMIT Family Medicine; ATTEND Family Medicine
DX: Z51.5 Encounter for palliative care (principal); C78.02 Secondary malignant neoplasm of left lung; C78.01 Secondary malignant neoplasm of right lung; C78.7 Secondary malignant neoplasm of liver and intrahepatic bile duct; R18.8 Other ascites; C18.9 Malignant neoplasm of colon, unspecified; R11.2 Nausea with vomiting, unspecified; E78.5 Hyperlipidemia, unspecified; I11.0 Hypertensive heart disease with heart failure; I50.9 Heart failure, unspecified; K21.9 Gastro-esophageal reflux disease without esophagitis; E03.9 Hypothyroidism, unspecified; Z85.43 Personal history of malignant neoplasm of ovary; Z90.710 Acquired absence of both cervix and uterus; Z87.11 Personal history of peptic ulcer disease; Z96.1 Presence of intraocular lens; Z98.890 Other specified postprocedural states; Z87.39 Personal history of other diseases of the musculoskeletal system and connective tissue; Z87.19 Personal history of other diseases of the digestive system; Z87.898 Personal history of other specified conditions; Z98.42 Cataract extraction status, left eye; Z98.41 Cataract extraction status, right eye; Z90.49 Acquired absence of other specified parts of digestive tract; Z87.01 Personal history of pneumonia (recurrent); Z88.0 Allergy status to penicillin; Z79.899 Other long term (current) drug therapy; Z80.9 Family history of malignant neoplasm, unspecified